=== PATIENT | female | born 1935 | race Caucasian/White ===

== ENCOUNTER 2025-10-08 11:15 | Outpatient (AMB) | payer MEDICARE, BC, SELFPAY ==
--- OUTSIDE RECORDS SUMMARY | 2025-10-08 11:18 | XMS_ITS | Clinical Summary ---
Author Organization [facility] Healthcare Syste m Address [address] [place] [address] Care Team Providers Care Sugar Refiner Name Role Phone Wilbur Teague Primary Care Provider [phone] Allergies Active Allergy Reactions Criticality Noted Date Comments Meperidine 02/27/2022 Morphine 02/27/2022 Medications aspirin 81 mg EC tablet Take 1 tablet (81 mg) by mouth at bedtime. 5 Active flaxseed oiL oil Daily (once per day) (timed). 0 Active calcium carbonate 600 mg calcium (1,500 mg) tablet Take 2 tablets (1,200 mg) by mouth in the evening. 8 Active cyanocobalamin (Vitamin B-12) 1,000 mcg tablet Take 1 tablet (1,000 mcg) by mouth 1 (one) time each day. 1 Active triamterene-hyd rochlorothiazid (Dyazide) 37.5-25 mg capsule Take 1 capsule by mouth 1 (one) time each day. Saturday-Saturday 7 Active vit A/vit C/vit E/zinc/copper (PRESERVISION AREDS ORAL) in the morning and at bedtime. 1 Active calcium-vits N0-R-V7-mineral s 166.75 mg- 166.75 unit capsule calcium 600 mg by po daily Active glucosamine-D3- hyaluronic acid 1,000 mg- 25 mcg-1.65 mg tablet Glucosamine 1 tab by po twice a day Active metoprolol tartrate (Lopressor) 50 mg tablet Take 1 tablet (50 mg) by mouth in the morning and at bedtime. 180 tablet 3 2 Active omeprazole (PriLOSEC) [address] capsule Take 1 capsule (20 mg) by mouth before breakfast. Do not crush or chew. 90 capsule 3 2 Active atorvastatin (Lipitor) 80 mg tablet Take 1 tablet (80 mg) by mouth in the morning. 90 tablet 3 2 Active levothyroxine (Synthroid, Levoxyl) 88 mcg tablet Take 1 tablet (88 mcg) by mouth before breakfast. 90 tablet 3 2 Active amLODIPine (Norvasc) 5 mg tablet Take 1 tablet (5 mg) by mouth in the morning. 90 tablet 3 2 Active Additional Information Patient taking differently: 10 mgoral Daily, Reported on 05/04/2025 losartan (Cozaar) 100 mg tablet Take 1 tablet (100 mg) by mouth in the morning. 90 tablet 3 2 Active docosahexaenoic acid/epa (FISH OIL ORAL) Take by mouth. Activ e nitroglycerin (Nitrostat) 0.[address] 1 tablet (0.4 mg) under the tongue every 5 (five) minutes if needed for chest pain. 90 tablet 3 3 Active clonazePAM (KlonoPIN) 0.5 mg tablet Take 1 tablet (0.5 mg) by mouth at bedtime. 4 Active sertraline (Zoloft) 50 mg tablet Take 1 tablet (50 mg) by mouth every other day. Active Active Problems Problem Noted Date Diagnosed Date Anemia of chronic renal failure 06/05/2022 CAD in [place] artery 02/27/2022 Arteriosclerosis of coronary artery 02/27/2022 Dyslipidemia 02/27/2022 Gastroesophageal reflux disease 02/27/2022 Hypertension 02/27/2022 Hypothyroidism 02/27/2022 Immunizations Immunization Administration Dates Next Due Pneumococcal Conjugate PCV 13 08/24/2015 Family History Medical History Relation Name Comments Heart attack Father Heart disease Father Lung cancer Father Alzheimer's disease Mother Relation Name Status Comments Father Mother Social History Tobacco Use Types Packs/Day Years Used Date Smoking Tobacco: Never Smokeless Tobacco: Never Tobacco Cessation:Counseling Given: Not Answered Comments Unknown Sex and Gender Information Value Date Recorded Sex Assigned at Not on file Legal Sex Female 9:57 PM EDT Gender Identity Not on file Sexual Orientation Not on file Last Filed Vital Signs Vital Sign Reading Time Taken Comments Blood Pressure 126/75 05/04/2025 12:53 PM EDT Pulse 58 05/04/2025 12:53 PM EDT Temperature 36.7 C (98.1 F) 07/03/2022 2:12 PM EDT Respiratory Rate 18 05/04/2025 12:53 PM EDT Oxygen Saturation 97% 05/04/2025 12:53 PM EDT Inhaled Oxygen Concentration - - Weight 47.6 kg (105 lb) 05/04/2025 12:53 PM EDT Height 157.5 cm (5' 2.01 ) 05/04/2025 12:53 PM E DT Body Mass Index 19.2 05/04/2025 12:53 PM EDT Plan of Treatment Upcoming Encounters Date Type Department Care Team (Late st Contact Info) Description 11/17/2025 1:00 PM EST Office Visit [facility] Cardiology - [place] [address] [place] [address], [address] [place] [address] Diego Gurrola MD [address] [place] [address] Health Maintenance Due Date Last Done Comments Bone Density Scan 1935 TSH Level 1935 Hepatitis B Vaccines (2 of 3 - 19+ 3-dose series) 11/11/1969 10/14/1969 COVID-19 Vaccine ( season) 2025 08/06/2022, 03/06/2022, 08/09/2021, Additional history exists Influenza Vaccine (#1) 2025 , 07/08/2023, 07/31/2022, Additional history exists Medicare Annual Wellness (AWV) 11/12/2025 10/13/2024, 10/10/2023, 10/04/2022, Additional history exists Pneumococcal Vaccine: 50+ Years Completed 07/02/2019, 10/14/2018, 08/24/2015 Zoster Vaccines Completed 07/27/2020, 11/15, 12/10/2018 HIB Vaccines Aged Out No longer eligi ble based on patient's age to complete this topic HPV Vaccines Aged Out No longer eligi ble based on patient's age to complete this topic Hepatitis A Vaccines Aged Out No long er eligible based on patient's age to complete this topic IPV Vaccines Aged Out No longer eligi ble based on patient's age to complete this topic Meningococcal B Vaccine Aged Out No l onger eligible based on patient's age to complete this topic Meningococcal Vaccine Aged Out No kely johny eligible based on patient's age to complete this topic Rotavirus Vaccines Aged Out No longer eligible based on patient's age to complete this topic Insurance MEDICARE [facility] Care Teams Sugar Refiner Relationship Specialty Start Date End Date Wilbur Teague [address] [facility] [place] [address] [facility] - General 03/28/22
--- OUTSIDE RECORDS SUMMARY | 2025-10-08 11:18 | XMS_ITS | Encounter Summary ---
Author Organization [facility] Healthcare Syste m Address [address] [place] [address] Care Team Providers Care Buffing And Polishing Wheel Repairer Name Role Phone ChidiWilbur vasquez Primary Care Provider [phone] Encounter Details Date Type Department Care Team (Late st Contact Info) Description 07/03/2022 Abstract [facility] ([facility] [address] [place] [address] Bhavesh Porras PA-C [address] [place] [address] Social History Tobacco Use Types Packs/Day Years Used Date Smoking Tobacco: Never Assessed Smokeless Tobacco: Never Comments Unknown Sex and Gender Information Value Date Recorded Sex Assigned at Not on file Legal Sex Female 9:57 PM EDT Gender Identity Not on file Sexual Orientation Not on file COVID-19 Exposure Response Date Recorded In the last month, have you been in contact with someone who was confirmed or suspected to have Coronavirus / COVID-19? No / Unsure 07/03/2022 2:05 PM EDT documented as of this encounter Plan of Treatment Upcoming Encounters Date Type Department Care Team (Late st Contact Info) Description 11/17/2025 1:00 PM EST Office Visit [facility] Cardiology - [place] [address], [address] [place] [address] Diego Gurrola MD [address] [place] [address] documented as of this encounter Visit Diagnoses Not on filedocumented in this encounter Care Teams Buffing And Polishing Wheel Repairer Relationship Specialty Start Date End Date Wilbur Teague [address] [facility] [address] KENDRICK [address] [place] [address], [place] [address] PCP - General 03/28/22 documented as of this encounter
--- OUTSIDE RECORDS SUMMARY | 2025-10-08 11:18 | XMS_ITS | Encounter Summary ---
Author Organization [facility] Healthcare Syste m Address [address] [place] [address] Care Team Providers Care Bond Trader Name Role Phone ChidiWilbur vasquez Primary Care Provider [phone] Encounter Details Date Type Department Care Team (Late st Contact Info) Description 07/31/2022 Abstract [facility] Out[facility] ([facility]) [address] [place] [address] Bhavesh Porras PA-C [address] [place] [address] Social History Tobacco Use Types Packs/Day Years [...] Description 11/17/2025 1:00 PM EST Office Visit [facility] Cardiology - [place] [address], [address] [place] [address] Diego Gurrola MD [address] [place] [address] documented as of this encounter Visit Diagnoses Not on filedocumented in this encounter Care Teams Bond Trader Relationship Specialty Start Date End Date Wilbur Teague [address] [facility] [address] KENDRICK [address] [place] [address], [place] [address] PCP - General 03/28/22 documented as of this encounter
--- OUTSIDE RECORDS SUMMARY | 2025-10-08 11:18 | XMS_ITS | Encounter Summary ---
Author Organization [facility] Healthcare Syste m Address [address] [place] [address] Care Team Providers Care Vp Of Global Marketing Name Role Phone ChidiWilbur vasquez Primary Care Provider [phone] Encounter Details Date Type Department Care Team (Late st Contact Info) Description 07/03/2022 Abstract [facility] ([facility]) [address] [place] [address] Bhavesh Porras PA-C [address] [place] [address] Social History Tobacco Use Types Packs/Day Years [...] Description 11/17/2025 1:00 PM EST Office Visit [facility] Cardiology - [place] [address], [address] [place] [address] Diego Gurrola MD [address] [place] [address] documented as of this encounter Visit Diagnoses Not on filedocumented in this encounter Care Teams Vp Of Global Marketing Relationship Specialty Start Date End Date Wilbur Teague [address] [facility] [address] KENDRICK [address] [place] [address], [place] [address] PCP - General 03/28/22 documented as of this encounter
--- OUTSIDE RECORDS SUMMARY | 2025-10-08 11:19 | XMS_ITS | Encounter Summary ---
Author Organization [facility] Healthcare Syste m Address [address] [place] [address] Care Team Providers Care Manager Council Name Role Phone ChidiWilbur vasquez Primary Care Provider [phone] Encounter Details Date Type Department Care Team (Late st Contact Info) Description 06/05/2022 Abstract [facility] ([facility] [address] [place] [address] Bhavesh Porras PA-C [address] [place] [address] Social History Tobacco Use Types Packs/Day Years [...] have Coronavirus / COVID-19? No / Unsure 06/05/2022 1:45 PM EDT documented as of this encounter Plan of Treatment Upcoming Encounters Date Type Department Care Team (Late st Contact Info) Description 11/17/2025 1:00 PM EST Office Visit [facility] Cardiology - [place] [address], [address] [place] [address] Diego Gurrola MD [address] [place] [address] documented as of this encounter Visit Diagnoses Not on filedocumented in this encounter Care Teams Manager Council Relationship Specialty Start Date End Date Wilbur Teague [address] [facility] [address] KEN[address]ICK [address] [place] [address], [place] [address] PCP - General 03/28/22 documented as of this encounter
--- OUTSIDE RECORDS SUMMARY | 2025-10-08 11:19 | XMS_ITS | Encounter Summary ---
Author Organization [facility] Healthcare Syste m Address [address] [place] [address] Care Team Providers Care Order Management Specialist Name Role Phone ChidiWilbur vasquez Primary Care Provider [phone] Encounter Details Date Type Department Care Team (Late st Contact Info) Description 06/04/2022 Abstract [facility] ([facility]) [address] [place] [address] Bhavesh Porras PA-C [address] [place] [address] Social History Tobacco Use Types Packs/Day Years [...] Description 11/17/2025 1:00 PM EST Office Visit [facility] Cardiology - [place] [address], [address] [place] [address] Diego Gurrola MD [address] [place] [address] documented as of this encounter Visit Diagnoses Not on filedocumented in this encounter Care Teams Order Management Specialist Relationship Specialty Start Date End Date Wilbur Teague [address] [facility] [address] KENDRICK [address] [place] [address], [place] [address] PCP - General 03/28/22 documented as of this encounter
--- OUTSIDE RECORDS SUMMARY | 2025-10-08 11:19 | XMS_ITS | Encounter Summary ---
Author Organization [facility] Healthcare Syste m Address [address] [place] [address] Care Team Providers Care Associate Biological Sales Name Role Phone ChidiWilbur vasquez Primary Care Provider [phone] Encounter Details Date Type Department Care Team (Late st Contact Info) Description 06/04/2022 Abstract [facility]) [address] [place] [address] Bhavesh Porras PA-C [address] [place] [address] Social History Tobacco Use Types Packs/Day Years [...] Description 11/17/2025 1:00 PM EST Office Visit [facility] Cardiology - [place] [address], [address] [place] [address] Diego Gurrola MD [address] [place] [address] documented as of this encounter Visit Diagnoses Not on filedocumented in this encounter Care Teams Associate Biological Sales Relationship Specialty Start Date End Date Wilbur Teague [address] [facility] [address] K[address] [place] [address], [place] [address] PCP - General 03/28/22 documented as of this encounter
--- OUTSIDE RECORDS SUMMARY | 2025-10-08 11:19 | XMS_ITS | Encounter Summary ---
Author Organization [facility] Healthcare Syste m Address [address] [place] [address] Care Team Providers Care Heel Shaver Name Role Phone ChidiWilbur vasquez Primary Care Provider [phone] Encounter Details Date Type Department Care Team (Late st Contact Info) Description 06/04/2022 Abstract [facility] Out[facility] ([facility]) [address] [place] [address] Bhavesh Porras PA-C [address] [place] [address] Social History Tobacco Use Types Packs/Day Years [...] Description 11/17/2025 1:00 PM EST Office Visit [facility] Cardiology - [place] [address], [address] [place] [address] Diego Gurrola MD [address] [place] [address] documented as of this encounter Visit Diagnoses Not on filedocumented in this encounter Care Teams Heel Shaver Relationship Specialty Start Date End Date Wilbur Teague [address] [facility] [address] K[place] [place] [address], [place] [address] PCP - General 03/28/22 documented as of this encounter
--- OUTSIDE RECORDS SUMMARY | 2025-10-08 11:19 | XMS_ITS | Clinical Summary ---
Author Organization [facility] Address [address] [place] [address] Care Team Providers Care Nurses' Association Executive Director Name Role Phone Unavailable Primary Care Provider Unavailabl e Social History Tobacco Use Types Packs/Day Years Used Date Smoking Tobacco: Never Assessed Comments Unknown Sex and Gender Information Value Date Recorded Sex Assigned at Not on file Legal Sex Female 6:59 AM EST Gender Identity Not on file Sexual Orientation Not on file Plan of Treatment Not on file
--- OUTSIDE RECORDS SUMMARY | 2025-10-08 11:19 | XMS_ITS | Encounter Summary ---
Author Organization [facility] Healthcare Syste m Address [address] [place] [address] Care Team Providers Care Non Licensed Nuclear Equipment Operator Name Role Phone ChidiWilbur vasquez Primary Care Provider [phone] Encounter Details Date Type Department Care Team (Late st Contact Info) Description 06/04/2022 Abstract [facility] Outpatient [facility] Center ([facility]) [address] [place] [address] Bhavesh Porras PA-C [address] [place] [address] Social History Tobacco Use Types Packs/Day Years [...] Description 11/17/2025 1:00 PM EST Office Visit [facility] Cardiology - [place] [address], [address] [place] [address] Diego Gurrola MD [address] [place] [address] documented as of this encounter Visit Diagnoses Not on filedocumented in this encounter Care Teams Non Licensed Nuclear Equipment Operator Relationship Specialty Start Date End Date Wilbur Teague [address] [facility] [address] K[address] [place] [address], [place] [address] PCP - General 03/28/22 documented as of this encounter
--- OUTSIDE RECORDS SUMMARY | 2025-10-08 11:19 | XMS_ITS | Continuity of Care Document ---
Author Organization [place] - [facility] [place], [address] Address [address] [place] [address] Care Team Providers Care [employer] Supervisor Name Role Phone STEVE MARI OTHER BRI TEAGUE Primary Care Provider Assessment Encounter Date Assessment Date Assessment LastModified by Organization Details LastModified Time 07/12/2025 07/12/2025 [place] son and daughter. She requests medical records to be sent to her new provider but has not picked a new provider yet. Advised her to contact clinic when she has and we can fax records. I will continue to provide medication refills for her for up to 12 months from now. She is appreciative of this and for the care provided while in [place] to her and her now- . [place] Not available 07/13/2025 06:36:58 Plan of Treatment Reminders Order Date Submit Date Provider Last Modified By Organization Details Last Modified Time Details Appointments *Medicare Annual Wellness 2025 12:00P Kady Teague MD Not available Not available Not available Lab None recorded. Referral None recorded. Procedures None recorded. Surgeries None recorded. Imaging None recorded. Medication Orders None recorded. Patient TargetsNo targets recorded. Patient Instructions Encounter Date Encounter Id Patient Instructions Last Modified By Organization Details Last Modified Time 07/12/2025 [id number] high blood pressure: care instructions [place] Not available 07/12/2025 13:27:37 learning about high blood pressure [place] Not available 07/12/2025 13:27:37 Reason for Referral None Reported. Results Created Date Observation Date Name Description Value Unit Range Abnormal Flag Note LastModifiedBy Organization Detail LastModifiedTime 07/22/20 25 05/14/2025 ben curran am No observ ation record ed. BARCODE Not Available 2024 17:10:47 Result Notes None recorded. 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 Not Available [facility] 0 14:15:17 Coronary arterios clerosis 26086345 Active Not Available [facility] 0 14:15:17 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 Not Available [facility] 0 14:15:17 Benign essentia l hyperten jake 3944106 Active Not Available [facility] 0 14:15:17 Anemia of chronic disease 714192664 Active Not Available [facility] 0 14:15:17 Impacted cerumen 69379837 Completed 01/20/2020 Walt Freitas MD [address], [address], [address] , [address] 0 10:49:28 Generali zed headache 341754960 Completed 01/20/2020 Removal Reason: has not been a problem recently Walt Freitas MD [address], [address], [address] , [address] 0 16:50:16 Benign paroxysm al position al vertigo 478503589 Completed 01/20/2020 Removal Reason: resolved Walt Freitas MD [address], [address], [address] , [address] 0 16:49:55 Intracra nial meningio ma 897710219 Active Not Available [facility] 0 14:15:17 Anemia 047177365 Completed 201701/20/2020 Walt Freitas MD [address], [address]ITE [facility], [place], [address] , [address] 0 10:49:10 Chronic kidney disease stage 3B 776099730 Active 2019 Not Available [facility] 0 14:15:17 Chronic insomnia 881390276 Active 2020 Walt Freitas MD [address], [address], [address] , [address] 1 20:01:38 Arthriti s of hand 403065768 Active 2020 Walt Freitas MD [address], [place] [address], [place], [address] , [address] 1 11:27:21 Near syncope 571071704 Active 2024 BRI TEAGUE MD [address] [place], [address] , [address] 5 06:20:51 Problem Notes None recorded. Procedures Surgical History Date Name Laterality Status Provider Name and Address Organization Details Recorded Time 11/02/19 Date of Last Mammogram completed Kiki Duncan CMA [address] 05/10/2025 10:55:37 10/13/20 24 Medicare Wellness CPT Code, Subsequent completed Rock Renteria LPN [address] 10/13/2024 13:05:49 10/10/20 23 Medicare Wellness CPT Code, Subsequent completed Smitha Mcdermott Director Risk [address] 10/09/2023 07:52:12 10/04/20 Medicare Wellness CPT Code, Subsequent completed Tim Maldonado [address] 10/04/2022 13:01:18 01/17/20 Most Recent Bone Density completed Kiki Duncan CRITICAL CARE NURSE SPECIALIST [address] 01/02/2023 12:15:57 09/24/20 21 Medicare Wellness CPT Code, Subsequent completed Bayron Ra[address] 07/07/2021 10:32:52 07/12/20 20 Medicare Wellness CPT Code, Subsequent completed Bayron Ra[address] 07/12/2020 13:51:38 01/20/20 20 Telehealth Communication completed Radha Artis, [address] 01/20/2020 10:00:33 07/08/20 19 Medicare Wellness CPT Code, Initial completed Rula Cevallos RN [address] 07/08/2019 14:38:30 10/14/19 14 Date of Last Colonoscopy completed Kiki Duncan , [address] 01/02/2023 12:15:43 10/14/18 74 Hysterectomy completed Bayronmackenzie Knapp[address] 07/12/2020 14:00:15 Appendectomy completed MARCELLO Black [address] 12/14/2024 11:10:27 Angioplasty completed Cassidy Espinoza[address] 09/23/2014 12:37:41 Imaging Results None recorded. Procedure Notes None recorded. Medical Equipment None Reported. Allergies Allergen ID Allergen Name Allergen Category Reaction Reaction Severity Criticality Documentation Date Start Date Code Code System Note Provider Name and Address Organization Details Recorded Time 289242 morphine medicatio n Not available Not available Not available 09/23/2014 7052 RxNorm Beronica Espinoza[address] 4 12:34:41 097993 meperidin e medicatio n Not available Not available Not available 09/23/2014 6754 RxNorm Beronica Espinoza[address] 4 12:34:41 627036 Demerol medicatio n Not available Not available Not available 02/26/2018 00345 1 RxNorm TESS [employer] 8 09:09:27 Medications Name Sig Start Date Stop Date Status Note LastModified by Organization Details LastModified Time atorvastati n 80 mg tablet TAKE 1 TABLET BY MOUTH EVERY DAY active Not Available Not Available No t Available ketoconazol e 2 % shampoo WASH TOPICALLY TO THE SCALP 3 TO 4 TIMES WEEKLY. LEAVE ON FOR 5 MINUTES THEN RINSE active Not Available Not Available No t Available trazodone 50 mg tablet 1 tablet PO at bedtime. May increase to 2 tablets at bedtime if needed. 04/26 completed Not Available Not Available Not Available azithromyci n 250 mg tablet TAKE 2 TABLETS (500 MG) BY ORAL ROUTE ONCE DAILY FOR 1 DAY THEN 1 TABLET (250 MG) BY ORAL ROUTE ONCE DAILY FOR 4 DAYS 05/10 completed Not Available Not Available Not Available benzonatate 200 mg capsule TAKE 1 CAPSULE BY MOUTH THREE TIMES DAILY FOR 7 DAYS NEEDED 07/14 completed Not Available Not Available Not Available ondansetron HCl 4 mg tablet TAKE 1 TABLET BY MOUTH EVERY 12 HOURS 01/02 completed Not Available Not Available Not Available clonazepam 0.5 mg tablet TAKE 1 TO 2 TABLETS BY MOUTH EVERY DAY NEEDED FOR INSOMNIA active Not Available Not Available No t Available amlodipine 2.5 mg tablet TAKE 1 TABLET BY MOUTH EVERY DAY FOR 90 DAYS active Not Available Not Available No t Available amlodipine 5 mg tablet TAKE 2 TABLETS BY MOUTH EVERY DAY active Not Available Not Available No t Available triamterene 37.5 mg-hydrochl orothiazide 25 mg capsule TK 1 C PO QD 01/19 completed Not Available Not Available Not Available levothyroxi ne 88 mcg tablet TAKE 1 TABLET BY MOUTH EVERY DAY active Not Available Not Available No t Available lorazepam 0.5 mg tablet TAKE 1 TABLET BY MOUTH PRIOR TO MRI THEN TAKE 1 TABLET BY MOUTH RIGHT BEFORE MRI 01/03 completed Not Available Not Available Not Available temazepam 15 mg capsule TAKE ONE CAPSULE BY MOUTH AT BEDTIME NEEDED INSOMNIA 10/04 completed Not Available Not Available Not Available meclizine 25 mg tablet TAKE 1 TABLET BY MOUTH EVERY 8 HOURS NEEDED 07/12 completed Not Available Not Available Not Available benzonatate 100 mg capsule 11/12 completed Not Available Not Available Not Available hydrocodone 7.5 mg-acetamin ophen 325 mg tablet TAKE 1 TO 2 TABLETS BY MOUTH EVERY 4 TO 6 HOURS NEEDED active Not Available Not Available No t Available cephalexin 500 mg capsule 01/19 completed Not Available Not Available Not Available esomeprazol e magnesium 40 mg capsule,del ayed release Take 1 capsule(s ) every day by oral route. 07/12 completed Not Available Not Available Not Available metoprolol tartrate 50 mg tablet TAKE 1 TABLET BY MOUTH TWICE DAILY active Not Available Not Available No t Available nitroglycer in 0.4 mg sublingual tablet DISSOLVE 1 TABLET UNDER THE TONGUE EVERY 5 MINUTES NEEDED FOR CHEST PAIN active Not Available Not Available No t Available triamterene 37.5 mg-hydrochl orothiazide 25 mg tablet TAKE 1 TABLET BY MOUTH EVERY DAY active Not Available Not Available No t Available omeprazole 20 mg capsule,del ayed release TAKE 1 CAPSULE BY MOUTH EVERY DAY active Not Available Not Available No t Available aspirin 81 mg chewable tablet Chew 1 tablet every day by oral route. active Not Available Not Available No t Available hydrocortis one 2.5 % topical cream APPLY TO THE AFFECTED AREA ON RIGHT LOWER EYELID TWICE DAILY FOR 5 DAYS THEN STOP. MUST TAKE AT LEAST 1 WEEK BREAK THEN USE NEEDED FOR FLARES 10/04 completed Not Available Not Available Not Available zolpidem 5 mg tablet TAKE 1 TABLET BY MOUTH EVERY DAY AT BEDTIME NEEDED active Not Available Not Available No t Available fluocinolon e 0.01 % topical solution APPLY TO AFFECTED AREA ON SCALP EVERY DAY FOR 7 DAYS THEN STOP. MUST TAKE AT LEAST 1 WEEK BREAK. USE NEEDED FOR FLARE UPS. DO NOT RINSE active Not Available Not Available No t Available irbesartan 150 mg tablet TK 1 T PO QD 07/12 completed Not Available Not Available Not Available methylpredn isolone 4 mg tablets in a dose pack 11/12 completed Not Available Not Available Not Available losartan 100 mg tablet TAKE 1 TABLET BY MOUTH EVERY DAY FOR 90 DAY 2024 active Not Available Not Available Not Avai lable sertraline 50 mg tablet Take 1 tablet every day by oral route. 12/14 completed Not Available Not Available Not Available neomycin 3.5 mg/g-polymy chantelle B 10,000 unit/g-dexa meth 0.1 % eye oint 07/12 completed Not Available Not Available Not Available Pneumovax-2 3 25 mcg/0.5 mL injection syringe ADM 0.5ML IM UTD 01/19 completed Not Available Not Available Not Available cyclobenzap rine 5 mg tablet TK 1 TO 2 TS PO QHS PRF INSOMNIA 01/19 completed Not Available Not Available Not Available Vigamox 0.5 % eye drops active Not Available Not Available Not Available Boostrix Tdap 2.5 Lf unit-8 mcg-5 Lf/0.5 mL intramuscul ar syringe ADM 0.5ML IM UTD 01/19 completed Not Available Not Available Not Available calcium 600 mg by po daily active Not Available Not Available No t Available Glucosamine 1 tab by po twice a day active Not Available Not Available No t Available ProAir HFA 90 mcg/actuati on aerosol inhaler 11/12 completed Not Available Not Available Not Available fluocinolon e acetonide oil 0.01 % ear drops INSTILL 5 DROPS INTO RIGHT EAR BY OTIC ROUTE 2 TIMES PER DAY active Not Available Not Available No t Available peg 3350-electr olytes 236 gram-22.74 gram-6.74 gram-5.86 gram solution active Not Available Not Available Not Available oseltamivir 30 mg capsule Take 1 capsule every day by oral route for 5 days. 05/10 completed Not Available Not Available Not Available Durezol 0.05 % eye drops active Not Available Not Available Not Available B12 1 tab daily 04/26 completed Not Available Not Available Not Available ICaps AREDS 22 tablets a day active Not Available Not Available No t Available Prolensa 0.07 % eye drops active Not Available Not Available Not Available Fluzone High-Dose (PF) 180 mcg/0.5 mL intramuscul ar syringe ADM 0.5ML UTD active Not Available Not Available No t Available Fluzone High-Dose (PF) 180 mcg/0.5 mL intramuscul ar syringe ADM 0.5ML IM UTD 11/12 completed Not Available Not Available Not Available Shingrix (PF) 50 mcg/0.5 mL intramuscul ar suspension, kit ADM 0.5ML IM UTD 10/04 completed Not Available Not Available Not Available Fluad 65yr up(PF)45 mcg(15 mcgx3)/0.5 mL intramuscul ar syringe ADM 0.5ML IM UTD 11/12 completed Not Available Not Available Not Available Fluad 65yr up(PF)45 mcg(15 mcgx3)/0.5 mL intramuscul ar syringe ADM 0.5ML IM UTD 01/19 completed Not Available Not Available Not Available Fluzone High-Dose Quad (PF) 240 mcg/0.7 mL IM syringe ADM 0.7ML IM UTD 04/26 completed Not Available Not Available Not Available Vitals Date Recorded Body height Body mass index (BMI) Body weight Heart rate Respiratory rate Oxygen saturation Pain severity - 0-10 verbal numeric rating [Score] - Reported Systolic And Diastolic Provider Name and Address Organization Details Last Updated DateTime 5 157.48 cm 19.6 kg/m2 74451.3 8 g 62 /min 16 /min 97 % 0 124/63 mm[Hg] Kiki Duncan [facility]14 [place] 13:02:36 Social History Question Answer Notes LastModified by Organizat ion Details LastModified Time Tobacco Smoking Status Former Smoker Cassidy Espinoza CMA [facility], [facility] [place] 09/23/2014 12:34:12 Do You Have An Advance Directive? Yes [email or web address] Information not available 10/04/2022 Are You Blind Or Do You Have Difficulty Seeing? No Information not available 10/04/2022 What Is Your Level Of Caffeine Consumption? Occasional 1 Cup Of Coffee A Day Decaff [email or web address] Information not available 10/04/2022 Are You Deaf Or Do You Have Serious Difficulty Hearing? No [email or web address] Information not available 10/04/2022 What Type Of Diet Are You Following? REGULAR [email or web address] Information not available 10/04/2022 What Is The Highest Grade Or Level Of School You Have Completed Or The Highest Degree You Have Received? CT72265-8 [email or web address] Information not available 10/04/2022 Which Of Your Hands Is Dominant? Right [email or web address] Information not available 10/04/2022 Do You Have A Medical Power Of Project Scheduler? Yes [email or web address] Information not available 10/04/2022 What Was The Date Of Your Most Recent Tobacco Screening? 05/10/2025 [email or web address] Information not available 05/10/2025 How Many Children Do You Have? 3 [email or web address] Information not available 10/04/2022 What Is Your Current Pack Years? 10packyears [email or web address] Information not available 10/04/2022 What Is Your Relationship Status? [email or web address] Information not available 10/04/2022 Do You Use Your Seat Belt Or Car Seat Routinely? Yes [email or web address] Information not available 10/04/2022 Do You Have Smoke And Carbon Monoxide Detectors In Your Home? Yes [email or web address] Information not available 10/04/2022 Are You Passively Exposed To Smoke? No [email or web address] Information not available 10/04/2022 How Much Tobacco Do You Smoke? No [email or web address] Information not available 10/04/2022 Do You Use Sunscreen Routinely? Yes [email or web address] Information not available 10/04/2022 Has Tobacco Cessation Counseling Been Provided? No [email or web address] Information not available 10/04/2022 How Many Years Have You Smoked Tobacco? 8 [email or web address] Information not available 07/12/2020 Have You Recently Traveled Abroad? No [email or web address] Information not available 10/04/2022 Do You Have Difficulty Walking Or Climbing Stairs? No [email or web address] Information not available 10/04/2022 Sex: Unknown Functional Status Question Answer Note LastModified by Organizat ion Details LastModified Time Do you use any illicit or recreational drugs? No [email or web address] Information not available 10/04/2022 Do you or have you ever used any other forms of tobacco or nicotine? No [email or web address] Information not available 10/04/2022 What is your level of alcohol consumption? 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 No [email or web address] Information not available 10/04/2022 Are you able to care for yourself independently? Yes [email or web address] Information not available 10/04/2022 Do you have difficulty dressing, bathing, grooming, or toileting? No Information not available 10/04/2022 Mental Status Question Answer Note LastModified by Organization D etails LastModified Time Do you have difficulty concentrating, remembering or making decisions? No [email or web address] Information no t available 10/04/2022 Family History Relationship Description Onset Age of this Age Resolved Age Notes LastModified by Organization Details LastModified Time Mother Alzheimer's disease 78 [email or web address] Not available 07/12 13:58:55 Father Malignant neoplasm of lung 57 [email or web address] Not available 07/12 13:59:10 Father Hyperlipidem ia [email or web address] Not available 2015 09:18:07 Father Hypertensive disorder [email or web address] Not available 2015 09:18:07 Medical History Condition Response Coronary Artery Disease Y Mammograms Y Arthritis Y Hyperlipidemia Y Hypertension Y Gynecological History Statement/Question Response Date of Last Pap Smear 10/14/2015 09/04/2013 Date of Last Colonoscopy 10/14/2013 Date of Last Mammogram 11/02/2024 Most Recent Bone Density 01/16/2022 09/04/2013 Obstetrics History GPAL:G 0 P 0 0 0 0 Immunizations Vaccine Type Date Status Note Provider Nam e and Address Organization Details Recorded Time Influenza, split virus, quadrivalent, preservative 9 completed Vialine Orcel , CRITICAL CARE NURSE SPECIALIST null, [place] - [facility] [place] 10/10/2023 12:09:38 Pneumococcal conjugate PCV 13 9 completed Vialine Orcel , CRITICAL CARE NURSE SPECIALIST [place], [place] [facility] [place] 10/10/2023 12:09:38 Hep B, unspecified formulation 0 completed Vialine Orcel , CRITICAL CARE NURSE SPECIALIST [place], [place] [facility] [place] 10/10/2023 12:09:38 Influenza, split virus, quadrivalent, preservative 0 completed Vialine Orcel , CRITICAL CARE NURSE SPECIALIST [place], [place] [facility] [place] 10/10/2023 12:09:38 COVID-19, mRNA, LNP-S, PF, 100 mcg/0.5mL dose or 50 mcg/0.25mL dose 2 completed Vialine Orcel , CRITICAL CARE NURSE SPECIALIST [place], [place] [facility] [place] 10/04/2022 14:09:16 COVID-19, mRNA, LNP-S, PF, 100 mcg/0.5mL dose or 50 mcg/0.25mL dose 1 completed Vialine Orcel , CRITICAL CARE NURSE SPECIALIST [place], [place] [facility] [place] 01/02/2023 12:14:18 zoster recombinant 0 completed Vialine Orcel , CRITICAL CARE NURSE SPECIALIST [place], [place] [facility] [place] 10/04/2022 14:22:02 zoster recombinant 9 completed Vialine Orcel , CRITICAL CARE NURSE SPECIALIST [place], [place] [facility] [place] 10/10/2023 12:09:38 Tdap 9 completed Vialine Orcel , CRITICAL CARE NURSE SPECIALIST null, [place] - [facility] [place] 10/04/2022 14:24:10 pneumococcal polysaccharide PPV23 9 completed Vialine Orcel , CRITICAL CARE NURSE SPECIALIST null, [place] [facility] [place] 10/04/2022 14:25:57 Influenza, adjuvanted, trivalent, PF 9 completed Vialine Orcel , CRITICAL CARE NURSE SPECIALIST null, [facility] [place] 10/04/2022 14:27:28 Influenza, adjuvanted, trivalent, PF 8 completed Vialine Orcel , CRITICAL CARE NURSE SPECIALIST null, [address] 10/04/2022 14:28:40 Pneumococcal conjugate PCV 13 5 completed Vialine Orcel , CRITICAL CARE NURSE SPECIALIST null, [place] [facility] [place] 10/04/2022 14:29:16 Novel [id number], preservative-free 0 completed Vialine Orcel , CRITICAL CARE NURSE SPECIALIST null, [address] 01/02/2023 12:14:19 zoster recombinant 0 completed Vialine Orcel , CRITICAL CARE NURSE SPECIALIST null, [address] 01/02/2023 12:14:18 Influenza, high-dose, quadrivalent, PF 1 completed Vialine Orcel , CRITICAL CARE NURSE SPECIALIST null, [address] 01/02/2023 12:14:18 Influenza, adjuvanted, quadrivalent, PF 2 completed Vialine Orcel , CRITICAL CARE NURSE SPECIALIST null, [facility] [place] 01/02/2023 12:14:18 COVID-19, mRNA, LNP-S, PF, 100 mcg/0.5mL dose or 50 mcg/0.25mL dose 1 completed Vialine Orcel , CRITICAL CARE NURSE SPECIALIST null, [place] [facility] [place] 01/02/2023 12:14:18 COVID-19, mRNA, LNP-S, PF, 100 mcg/0.5mL dose or 50 mcg/0.25mL dose 1 completed Vialine Orcel , CRITICAL CARE NURSE SPECIALIST [place], [place] [facility] [place] 01/02/2023 12:14:18 COVID-19, mRNA, LNP-S, bivalent, PF, 50 mcg/0.5 mL or 25mcg/0.25 mL dose 2 completed Vialine Orcel , CRITICAL CARE NURSE SPECIALIST null, [address] 01/02/2023 12:14:18 Influenza, high-dose, trivalent, PF 4 completed Vialine Orcel , CRITICAL CARE NURSE SPECIALIST null, [address] 10/10/2023 12:09:38 Influenza, high-dose, quadrivalent, PF 3 completed BRI TEAGUE MD [address] [place], [address], [address] 07/09/2023 06:26:44 Influenza, high-dose, trivalent, PF 4 completed Vialine Orcel , CRITICAL CARE NURSE SPECIALIST null, [address] 07/15/2024 10:53:34 Influenza, high-dose, trivalent, PF 5 completed Vialine Orcel , CRITICAL CARE NURSE SPECIALIST null, [address] 07/12/2025 13:38:58 Influenza, split virus, quadrivalent, preservative 7 completed Vialine Orcel , CRITICAL CARE NURSE SPECIALIST null, [address] 10/10/2023 12:09:38 Influenza, split virus, quadrivalent, preservative 8 completed Vialine Orcel , CRITICAL CARE NURSE SPECIALIST null, [address] 10/10/2023 12:09:38 Past Encounters Encounter ID Performer Location Encounter Start Date Encounter Closed Date Diagnosis/Indication Diagnosis SNOMED-CT Code Diagnosis ICD10 Code Diagnosis IMO Codes Diagnosis Note [id number] BRI TEAGUE MD [address] [place] [address] [place] [address] 07/12/2025 12:36:26 07/12/2025 13:33:57 Benign essential hypertension 7968447 I10 controlled . Improved. increased amlodipine to 10 mg, which we will continue. Considered increasing medication but decided not to based on previous good control, And home readings that are at goal - 100s-130s/ 60s 7 0sRecommen ded to resume AHBPM and f/u in 2 months, And follow-up with home readings for reassessme nt.Recomme nd that she bring her blood pressure cuff with her to the next office visit so we can check accuracy on that. Chronic anemia 254454562 D64.9 811217 likely secondary to CKD, and her anemia is now below 10, at Hgb 9.7.Leanne al, her stool was hemoccult positive. She feels she is too old for a GI w/u. she did see hematology and they recommende d IV iron, which helped. Postural dizziness 82231 7008 R42 R55 [id number] Recommend repeating carotid ultrasound and she agrees. Its been several years, But she says there was no significan t obstructio n when last checked. Requires i nfluenza virus vaccination 652841156 Z23 [id number] Health Concerns Section Related Observation LastModified by Organization Detai ls LastModified Time None Recorded Concern Status LastModified by Organization Details LastModified Time None Recorded Payers Encounter Date Sequence Insurance Name Policy Number Policy Dorsey Covered Member ID Dorsey Member ID Guarantor Name 07/12/2025 1 [place] Marlen Alejo [id number] Marlen Alejo 07/12/2025 2 [place] [address] Fairchild Melo [id number] Marlen Alejo Notes Date Note Type Note Provider Name and Address Organization Details Recorded Time 07/12/2025 text/html The patient is here to discuss the recent fasting labs, which are shown above. They are reviewed in detail with the patient, and All normal and abnormal results are explained. All questions answered to the patient's satisfaction today. BRI TEAGUE MD [facility] [place], [place], [id number], [address] 07/13/2025 06:37:07 OBGyn Episode No OBEpisode recorded.
--- OUTSIDE RECORDS SUMMARY | 2025-10-08 11:19 | XMS_ITS | Data Portability ---
Author Organization [place] [facility] [place], Main Office Address [address] [facility] [address] [place] [address] Care Team Providers Care Trumpet Teacher Name Role Phone MARI WILSON OTHER WILBUR TEAGUE Primary Care Provider Assessment Encounter Date Assessment Date Assessment LastModified by Organization Details LastModified Time 10/13/2024 10/13/2024 Falls: Number of falls in the past year: 0 ju Not available 10/13/2024 13:40:28 07/12/2025 07/12/2025 [place] [...] [place] to her and her now- . jodyola Not available 07/13/2025 06:36:58 Plan of Treatment Reminders Order Date Submit Date Provider Last Modified By Organization Details Last Modified Time Details Appointments *[facility] Perez ess 30 2025 12:00P M Wilbur Teague MD Not available Not available Not available Lab infec tious disea se panel 2023 024 [facility], [address], [place], [address], 10/15/2024 10:32:01 Referral None recor ded. Procedures None recor ded. Surgeries None recor ded. Imaging US, duple x, carot id arter y [address] [facility], [address] [facility], [place], [address], 05/14/2025 08:56:06 US, echoc ardio gram, trans thora cic, compl ete, w/ color flow 2024 025 [email or web address], [address], [place], [address], 08/22/2025 06:35:05 Medication Orders omepr azole 20 mg capsu le,de layed relea se 2024 025 [facility], [address], [place], [place], [id number], 05/10/2025 11:17:54 atorv astat in 80 mg table t 2024 025 [facility], [address], [place], [place], [id number], 05/10/2025 11:18:04 clona zepam 0.5 mg table t 2024 025 [facility] #03212, [address], [place], [place], [id number], 05/10/2025 11:17:43 triam teren e 37.5 mg-hy droch lorot hiazi de 25 mg table t 2024 025 [facility] #74607, [address], [place], [place], [id number], 05/10/2025 11:17:56 losar lucas 100 mg table t 2024 025 [facility]99055, [address], [place], [place], [id number], 05/10/2025 11:17:50 metop rolol tartr ate 50 mg table t 2024 025 [facility] #23013, [address], [place], [place], [id number], 05/10/2025 11:17:47 amlod ipine 5 mg table t [address] [place] [address] [facility] #55372, [address], [place], [place], [id number], 07/12/2025 13:02:17 triam teren e 37.5 mg-hy droch lorot hiazi de 25 mg table t 2024 025 [facility]17, [address], [place], [place], [id number], 01/12/2025 11:56:19 omepr azole 20 mg capsu le,de layed relea se 2023 024 [facility], [address], [place], [place], [id number], 10/13/2024 13:48:26 atorv astat in 80 mg table t 2023 024 [facility] #54976, [address], [place], [place], [id number], 10/13/2024 13:48:26 levot hyrox ine 88 mcg table t 2023 024 [facility] #16991, [address], [place], [place], [id number], 10/13/2024 13:48:26 amlod ipine 5 mg table t 2023 024 [facility] #45717, [address], [place], [place], [id number], 10/13/2024 13:48:26 losar lucas 100 mg table t 2023 [facility], [address], [place], [place], [id number], 10/13/2024 13:48:26 metop rolol tartr ate 50 mg table t 2023 [facility], [address], [place], [place], [id number], 10/13/2024 13:48:26 triam teren e 37.5 mg-hy droch lorot hiazi de 25 mg table t 2023 024 [facility] #85659, [address], [place], [place], [id number], 10/13/2024 13:48:26 sertr carlos 50 mg table t 2023 024 [email or web address], [address], [place], [place], [id number], 12/14/2024 11:08:54 Zithr omax Z-Ned 250 mg table t 2023 024 [facility] #19617, [address], [place], [place], [id number], 05/10/2025 10:55:04 oselt amivi r 30 mg capsu le 2023 024 [email or web address] #72385, [address], [place], [place], [id number], 05/10/2025 10:55:09 Patient TargetsNo targets recorded. Patient Instructions Encounter Date Encounter Id Patient Instructions Last Modified By Organization Details Last Modified Time 10/13/2024 [id number] multi-dimensiona l health assessment questionnaire* ascol[facility] Not available 10/13/2024 13:48:28 advance directiv es: care instructions ascola Not available 10/13/2024 13:48:25 Advance Care Directives Patient WebLink Handout ascola Not available 10/13/2024 13:48:25 hearing loss: ca re instructions ascola Not available 10/13/2024 13:48:25 heart-healthy di et: care instructions ascola Not available 10/13/2024 13:48:25 dash diet: care instructions ascola Not available 10/13/2024 13:48:25 preventing falls : care instructions ascola Not available 10/13/2024 13:48:25 anemia: care instructions ascola Not available 10/13/2024 13:48:25 high cholesterol : care instructions ascola Not available 10/13/2024 13:48:26 bronchitis: care instructions ascola Not available 10/13/2024 13:48:25 Personalized [facility] lt Plan and Screening Recommendations Advance Directives - Do you have one? Yes Advance Directives - Do we have your advance directive on file in your health record? Yes Primary Prevention/Intervent ion (prevents or decreases the chance of common diseases from occurring) Tobacco/Nicotine Risk: Non-Smoker Alcohol Misuse Screening: Low risk Weight: Appropriate Physical activity: Increase exercise/physical activity level Nutrition: Good Fall Risk (screened today): At risk, please refer to handout P reventing Falls: Care Instructions Recommend regular use of cane or walker Vaccines Influenza: Your next one in the fall of next year Pneumococcal: Series completed Shingles: Series completed COVID-19: Series and booster completed Respiratory Syncytial Virus (RSV): Recommended. There may be an out of pocket cost for preventive services Tetanus: Not indicated Hepatitis B: Secondary Prevention/Intervent ion (detects treatable diseases before they may cause symptoms, disability, or ) Breast Cancer Screening with mammogram: not indicated Cervical Cancer Screening: not indicated Osteoporosis Screening: not indicated Colon Cancer Screening: No screening necessary Eye Disease Screening: Per your eye care provider Hearing Screening: Recommended Depression Screening: Moderate to High risk Continue your current depression treatment Cognitive Screening: Normal Diabetes Screening: Performed/Ordered today Cardiovascular Disease (CVD) Screening: labs - Performed/Ordered today Aspirin Recommendations: you are at increased risk Daily aspirin recommended Abdominal Aortic Aneurysm (AAA) Screening: Not indicated Lung Cancer Screening: Not indicated Hepatitis/Sexually Transmitted Infection (STI)/Human Immunodeficiency Virus (HIV) Screenings: Tertiary Prevention/Intervent ion (identifies your current known diseases and attempts to prevent complications of those diseases) Complications of many of these diseases can be minimized through the primary prevention/intervent ions listed above but some may require medication addition/change or referrals and will be addressed today or at a follow-up appointment Pain Control Status: no pain or pain under adequate control Pain Medication Use and Risk for Opioid Misuse: You do not use addictive opioid medications, and therefore are not at risk Pain Management Plan: No interventions or changes required, alternative therapies have been assessed and documented in your chart ascola Not available 10/13/2024 13:44:18 12/14/2024 [id number] iron deficiency anemia: care instructions scera Not available 12/15/2024 10:27:09 01/12/2025 [id number] grief (actual/anticipated) : care instructions ascola Not available 01/12/2025 11:56:13 high blood press ure: care instructions ascola Not available 01/12/2025 11:56:13 learning about h igh blood pressure ascola Not available 01/12/2025 11:56:12 05/10/2025 [id number] lightheadedness or faintness: care instructions ascola Not available 05/10/2025 11:17:32 lightheadedness or faintness: care instructions ascola Not available 05/10/2025 11:17:32 07/12/2025 [id number] high blood press ure: care instructions ascola Not available 07/12/2025 13:27:37 learning about h igh blood pressure ascola Not available 07/12/2025 13:27:37 Reason for Referral None Reported. Results Created Date Observation Date Name Description Value Unit Range Abnormal Flag Note LastModifiedBy Organization Detail LastModifiedTime 10/13/20 24 10/15/2024 PNEUM ONIA tet B, tet M 25.166 ppm 23.000 - 27.778 abnormal Detec basim Not Available [facility] [address], [place], [address], 10/15/2024 10:32:01 10/13/20 24 10/15/2024 PNEUM ONIA ermb, C; mefa 25.607 ppm 23.000 - 27.611 abnormal Detec basim Not Available [facility] [address], [place], [address], 10/15/2024 10:32:01 10/13/20 24 10/15/2024 PNEUM ONIA streptococcu s pyogenes (group A strep) 0.000 ppm 19.961 - 24.689 normal Not Detec basim Not Available [facility] [address], [place], [address], 10/15/2024 10:32:01 10/13/20 24 10/15/2024 PNEUM ONIA streptococcu s pneumoniae 24.743 ppm 19.961 - 24.689 abnormal Detec basim Not Available [facility] [address], [place], [address], 10/15/2024 10:32:01 10/13/20 24 10/15/2024 PNEUM ONIA streptococcu s agalactiae (group B strep) 0.000 ppm 19.961 - 24.689 normal Not Detec basim Not Available [facility] [address], [place], [address], 10/15/2024 10:32:01 10/13/20 24 10/15/2024 PNEUM ONIA staphylococc us aureus 0.000 ppm 19.961 - 24.689 normal Not Detec basim Not Available [facility] [address], [place], [address], 10/15/2024 10:32:01 10/13/20 24 10/15/2024 PNEUM ONIA serratia marcescens 0.000 ppm 19.961 - 24.689 normal Not Detec basim Not Available [facility] [address], [place], [address], 10/15/2024 10:32:01 10/13/20 24 10/15/2024 PNEUM ONIA respiratory syncytial virus (rsvb_VI9999 0015_po) 0.000 ppm 23.000 - 31.722 normal Not Detec basim Not Available [facility] [address], [place], [address], 10/15/2024 10:32:01 10/13/20 24 10/15/2024 PNEUM ONIA pseudomonas aeruginosa 0.000 ppm 19.961 - 24.689 normal Not Detec basim Not Available [facility] [address], [place], [address], 10/15/2024 10:32:01 10/13/20 24 10/15/2024 PNEUM ONIA proteus mirabilis, vulgaris 0.000 ppm 19.961 - 24.689 normal Not Detec basim Not Available [facility] [address], [place], [address], 10/15/2024 10:32:01 10/13/20 24 10/15/2024 PNEUM ONIA parainfluenz a virus (types 1, 2, 3, 4) 0.000 ppm 23.000 - 31.313 normal Not Detec basim Not Available [facility] [address], [place], [address], 10/15/2024 10:32:01 10/13/20 24 10/15/2024 PNEUM ONIA mycoplasma pneumoniae 0.000 ppm 19.961 - 24.689 normal Not Detec basim Not Available [facility] [address], [place], [address], 10/15/2024 10:32:01 10/13/20 24 10/15/2024 PNEUM ONIA moraxella catarrhalis 0.000 ppm 19.961 - 24.689 normal Not Detec basim Not Available [facility] [address], [place], [address], 10/15/2024 10:32:01 10/13/20 24 10/15/2024 PNEUM ONIA legionella pneumophila 0.000 ppm 19.961 - 24.689 normal Not Detec basim Not Available [facility] [address], [place], [address], 10/15/2024 10:32:01 10/13/20 24 10/15/2024 PNEUM ONIA klebsiella pneumoniae, oxytoca 0.000 ppm 19.961 - 24.689 normal Not Detec basim Not Available [facility] [address], [place], [address], 10/15/2024 10:32:01 10/13/20 24 10/15/2024 PNEUM ONIA influenza virus B 0.000 ppm 23.000 - 30.081 normal Not Detec basim Not Available [facility] [address], [place], [address], 10/15/2024 10:32:01 10/13/20 24 10/15/2024 PNEUM ONIA human metapneumovi stacy 0.000 ppm 23.000 - 32.210 normal Not Detec basim Not Available [facility] [address], [place], [address], 10/15/2024 10:32:01 10/13/20 24 10/15/2024 PNEUM ONIA haemophilus influenzae 0.000 ppm 19.961 - 24.689 normal Not Detec basim Not Available [facility] [address], [place], [address], 10/15/2024 10:32:01 10/13/20 24 10/15/2024 PNEUM ONIA escherichia coli 0.000 ppm 19.961 - 24.689 normal Not Detec basim Not Available [facility] [address], [place], [address], 10/15/2024 10:32:01 10/13/20 24 10/15/2024 PNEUM ONIA enterovirus D68 0.000 ppm 23.000 - 32.117 normal Not Detec basim Not Available [facility] [address], [place], [address], 10/15/2024 10:32:01 10/13/20 24 10/15/2024 PNEUM ONIA coronaviruse s (229E, nl63, hku1, oc43) (g_betacoron avirus_1_g_c oronavirus_h ku1) 0.000 ppm 23.000 - 31.416 normal Not Detec bsaim Not Available [facility] [address] [place] [address] [address], [place], [address], 10/15/2024 10:32:01 10/13/20 24 10/15/2024 PNEUM ONIA chlamydia pneumoniae 0.000 ppm 19.961 - 24.689 normal Not Detec basim Not Available [facility] [address], [place], [address], 10/15/2024 10:32:01 10/13/20 24 10/15/2024 PNEUM ONIA bordetella pertussis, parapertussi s, bronchisepti ca 0.000 ppm 19.961 - 24.689 normal Not Detec basim Not Available [facility] [address] [place] [address] [address], [place], [address], 10/15/2024 10:32:01 10/13/20 24 10/15/2024 PNEUM ONIA acinetobacte r baumannii 0.000 ppm 19.961 - 24.689 normal Not Detec basim Not Available [facility] [address] [place] [address] [address], [place], [address], 10/15/2024 10:32:01 10/13/20 24 10/15/2024 PNEUM ONIA covid-19 coronavirus (sars-cov-2) 0.000 ppm 23.000 - 32.500 normal Not Detec basim Not Available [facility] [address], [place], [address], 10/15/2024 10:32:01 10/13/20 24 10/15/2024 PNEUM ONIA rhinovirus/e nterovirus (RV_1of2_VI9 9990016_po) 22.107 ppm 23.000 - 33.906 abnormal Detec basim Not Available [facility] [address], [place], [address], 10/15/2024 10:32:01 10/13/20 24 10/15/2024 PNEUM ONIA adenovirus (adv_1of2_VI 99990001_po) 0.000 ppm 23.000 - 31.943 normal Not Detec basim Not Available [facility] [address], [place], [address], 10/15/2024 10:32:01 10/13/20 24 10/15/2024 PNEUM ONIA enterobacter aerogenes, cloacae 0.000 ppm 19.961 - 24.689 normal Not Detec basim Not Available [facility] [address], [place], [address], 10/15/2024 10:32:01 11/02/19 25 11/02/2024 mg mammo scree griselda bilat eral W [facility] MRN:[id number] t: : 89 Sex Female : Locati o [facility] n: Orderi ng Physic madelyn: RHETT TEAGUE MD Mammog tee ACCESS ION EXAM DATE/T MARCI 520-25 -[id number] 0385 025 09:08 EST Reason For Exam Z12.31 Report PROCED URE INFORM ATION: Exam: MG Bilate ral Screen ing 3D Mammog tee Exam date and time: 025 9:05 AM Age: 89 years old Clinic al indica tion: Screen ing examin ation; Additi onal info: Z12.31 TECHNI QUE: Imagin g protoc ol: Bilate ral Screen ing tomosy nthesi s and 2D mammog tee includ ing comput er-aid ed detect ion (CAD) when perfor med. COMPAR SOLEDAD: 1. MG Mammo Screen ing Bilate ral W Hang 024 1:01 PM 2. MG Mammo Screen ing Bilate ral W Hang 2021 2:44 PM FINDIN GS: The breast tissue is compos ed of scatte red areas of fibrog landul ar densit y. Densit y catego ry B. There is no jovanna te mass, maddie ectura l distor tion or suspic ious microc alcifi cation s in either breast to sugges t malign lyudmila. No skin thicke griselda or axilla ry adenop athy. IMPRES JAKE: No mammog raphic eviden ce of malign lyudmila. Annual mammog raphic screen ing is recomm ended unless otherw ise clinic ally indica basim. ASSESS MENT: BI-RAD S Catego ry 1: Negati ve Recomm end routin e annual screen ing mammog tee. COMMEN TS: Per Wenceslao a Senate Ruling 381.93 3, Patien ts with dense breast s(terence gory C or D) will receiv e a letter statin g that small abnorm alitie s are diffic ult to detect in dense breast tissue and may benefi t from supple mentar y screen ing tests, specif ically if the patien t is at high risk for breast cancer . Arturo Hightower MD On 2024 09:27: 45; VR-MXL 4284H3 L Final Signed by: ARTURO HIGHTOWER MD Signed (Elect dino Signat ure): 2024 09:27 am EST [facility] [address] [place], [address], 01/13/2025 06:24:31 05/14/20 25 05/14/2025 US, rosario mcnamara id [facility] MARLEN CASON MRN:[id number] t: : 89 Sex Female : Locati o [facility] CNI n: Orderi ng Physic madelyn: RHETT TEAGUE MD Ultras ound ACCESS ION EXAM DATE/T MARCI 520-25 -[id number] [id number] 05/14/20 08:06 EDT Reason For Exam R55 Report PROCED URE INFORM ATION: Exam: US Duplex Bilate ral Extrac ranial Arteri es; Comple te; Caroti d Arteri es Exam date and time: 05/14/20 7:41 AM Age: 89 years old Clinic al indica tion: R55 TECHNI QUE: Imagin g protoc ol: Real-t marci duplex ultras ound scan of the bilate ral extrac ranial arteri es combin ing vee scale, color Dopple r and spectr al wavefo rm analys is with image docume ntatio n. Comple te exam. Exam focuse d on the caroti d arteri es. COMPAR SOLEDAD: No releva nt prior studie s availa ble. FINDIN GS: Right common caroti d artery : No acute occlus ion or high grade stenos is. Wavefo francisco are normal . Right electrical engineering intern al caroti d artery : No acute occlus ion or high grade stenos is. Wavefo francisco are normal . Right ICA/CC A ratio: Within normal limits . Right brick machine operator al caroti d artery : No stenos is at the origin . Right verteb ral artery : Antegr khurram flow. Left common caroti d artery : No acute occlus ion or high grade stenos is. Wavefo francisco are normal . Left electrical engineering intern al caroti d artery : No acute occlus ion or high grade stenos is. Wavefo francisco are normal . Left ICA/CC A ratio: Within normal limits . Left brick machine operator al caroti d artery : No stenos is at the origin . Left verteb ral artery : Antegr khurram flow. IMPRES JAKE: 0 - 49% caroti d stenos is REFERE NCES: SRU CRITER IA. The degree of electrical engineering intern al caroti d artery stenos is is based on criter ia define d by the Societ y of Radiol ogists in Ultras ound (SRU). Normal is no stenos is. Mild is less than 50% stenos is. Modera te is 50-69% stenos is. Severe is greate r than 69% stenos is to near occlus ion. Near occlus ion is a marked ly narrow ed lumen. Total occlus ion is no detect able patent lumen. Refere nce: [place], et al. Jamil merlos Artery Stenos is: Vee-S les and Baltazar r US Diagno sis-So ciety of Radiol ogists in Ultras ound Consen mackenzie Confer ence. Radiol ogy 2003; 229:34 0-346. Ultras ound Report Benji Boyle MD On 2024 08:55: 42; VR-MXL [id number] 1 Final Signed by: BENJI BOYLE MD Signed (Elect dino Signat ure): 2024 08:55 am EDT [facility] [address] [place], [address], 07/13/2025 06:36:01 07/22/20 25 05/14/2025 elect alejandro castillogr am No observ ation record ed. BARCODE Not Available 2024 17:10:47 Result Notes None recorded. Problems Name Problem SNOMED Code Status Onset Date Resolution Date Notes Provider Name and Address Organization Details Recorded Time Anxiety 84225992 Active Not Available [facility] 0 14:15:17 Gastroes ophageal reflux disease 710951546 Active Not Available [facility] 0 14:15:17 Chronic kidney disease stage 3 470479743 Completed 01/20/2020 Removal Reason: More precise descript ion 3b Walt Freitas MD [address], [address] , 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 Not Available [facility] 0 14:15:17 Benign essentia l hyperten jake 8507563 Active Not Available [facility] 0 14:15:17 Anemia of chronic disease 304071892 Active Not Available [facility] 0 14:15:17 Impacted cerumen 56102516 Completed 01/20/2020 Walt Freitas MD [address], [address], [address] , [address] 0 10:49:28 Generali zed headache 990845312 Completed 01/20/2020 Removal Reason: has not been a problem recently Walt Freitas MD [address] [place] [address], [place], [address] , [address] 0 16:50:16 Benign paroxysm al position al vertigo 442298735 Completed 01/20/2020 Removal Reason: resolved Walt Freitas MD [address], [place] [address], [place], [address] , [address] 0 16:49:55 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 Not Available [facility] 0 14:15:17 Anemia 149110103 Completed 201701/20/2020 Walt Freitas MD [address], [address], [address] , [address] 0 10:49:10 Chronic kidney disease stage 3B 047736651 Active 2019 Not Available [facility] 0 14:15:17 Chronic insomnia 350012462 Active 2020 Walt Freitas MD [address], [address], [address] , [address] 1 20:01:38 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 The following is a summary of the office evaluation on 12/14/2024 for your records.Encounter ReasonTransition of Care Encounter new patientVitals BP Cuff Size: adult12/14/2024 11:11 am BP Measurement Method: [id number]/14/2024 11:12 am BP: 153/76 sitting L arm12/14/2024 11:12 am Pulse: 56 bpm [id number]/14/2024 11:12 am RR: 18012/14/2024 11:12 am O2Sat: 98% Room Air at Rest12/14/2024 11:12 am Ht: 5 ft 2 in (157.48 cm)12/14/2024 11:08 am Pain Scale: 11:12 am History of Present Illnesscc chronic iron def anemia HPI:89-year-old with chronic iron deficiency anemia.Hb 9.2 She sees an oncologist locally (Dr Soni) but has also seen an oncologist in [place] for ongoing care. She has poor toleration of IV iron infusions. Her last colonoscopy was by me in 2013 for history of polyps. The colonoscopy was completely normal. recently she had a positive fecl occult blood testNo abdominal pain or GI symptomsAssessment and Plan1.Iron deficiency anemia, unspecified iron deficiency anemia typeThis is an 89-year-old female with chronic iron deficiency anemia that she has had for many years. She has had several workups in the past that include bone marrow biopsies etc. She also gets iron infusions regularly. I called Dr. Soni on the phone to ensure that I was not missing any details of her history. He explains that he sent her because of the iron deficiency plus the fecal occult blood test that was positive. The patient is not having any other symptoms. We had a long discussion about her options today. She is 89 years old and claims she has had a happy life. She explains that even if a cancer is found on colonoscopy she would not want to have surgery for it. She does not want any invasive testing such as scopes. I understand and respect her wishes. She may always return to see me if the situation changes or if she has any further questions.D50.9: Iron deficiency anemia, unspecified IRON DEFICIENCY ANEMIA: CARE INSTRUCTIONS Return to Office WILBUR TEAGUE MD for *Follow-up 15 at [facility] on 01/12/2025 at 11:30 AM WILBUR TEAGUE MD for *Medicare Annual Wellness 30 at [facility] 200 on 10/13/2025 at 11:00 AM Once again, thank you for entrusting me with the care of your patient and allowing me to participate in their assessment and evaluation. Sincerely, Electronically Signed by: MD WILBUR WIN CERA, MD [address] [place] [address], [id number] [address] 01/13/2025 06:24:32 Procedures Surgical History Date Name Laterality Status Provider Name and Address Organization Details Recorded Time 11/02/19 25 Date of Last Mammogram completed Kiki Duncan [facility] - [address] 05/10/2025 10:55:37 10/13/20 24 Medicare Wellness CPT Code, Subsequent completed Rock Renteria LPN [address] 10/13/2024 13:05:49 10/10/20 23 Medicare Wellness CPT Code, Subsequent completed Smitha Mcdermott Supervisor [employer] [address] 10/09/2023 07:52:12 10/04/20 22 Medicare Wellness CPT Code, Subsequent completed Tim Maldonado [address] 10/04/2022 13:01:18 01/17/20 22 Most Recent Bone Density completed Kiki Duncan [facility] [place] 01/02/2023 12:15:57 07/07/20 21 Medicare Wellness CPT Code, Subsequent [facility] [place] 07/07/2021 10:32:52 07/12/20 20 Medicare Wellness CPT Code, Subsequent [facility] [address] 07/12/2020 13:51:38 01/20/20 20 Telehealth Communication completed Radha Artis [address] 01/20/2020 10:00:33 07/08/20 19 Medicare Wellness CPT Code, Initial completed Rula Cevallos RN [address] 07/08/2019 14:38:30 10/14/19 14 Date of Last Colonoscopy completed Kiki Duncan , [address] 01/02/2023 12:15:43 10/14/18 74 Hysterectomy completed Bayron Knapp,[address] 07/12/2020 14:00:15 Appendectomy completed MARCELLO Black [address] 12/14/2024 11:10:27 Angioplasty completed Cassidy Espinoza ,[address] 09/23/2014 12:37:41 Imaging Results None recorded. Procedure Notes None recorded. Medical Equipment None Reported. Allergies Allergen ID Allergen Name Allergen Category Reaction Reaction Severity Criticality Documentation Date Start Date Code Code System Note Provider Name and Address Organization Details Recorded Time 916396 morphine medicatio n Not available Not available Not available 09/23/2014 7052 RxNorm Beronica Espinoza[address] 12:34:41 338191 meperidin e medicatio n Not available Not available Not available 09/23/2014 6754 RxNorm Beronica Espinoza[address] 4 12:34:41 574065 Demerol medicatio n Not available Not available Not available 02/26/2018 77456 1 RxNorm SOB Mulu Quick.[address] 8 09:09:27 Medications Name Sig Start [...] Not Available Vitals Date Recorded Body height Heart rate Respiratory rate Oxygen saturation Pain severity - 0-10 verbal numeric rating [Score] - Reported Systolic And Diastolic Provider Name and Address Organization Details Last Updated DateTime 5 157.48 cm 56 /min 18 /min 98 % 0 153/76 mm[Hg] MARCELLO Black [facility] [place] 11:12:04 Date Recorded Body height Body mass index (BMI) Body weight Heart rate Oxygen saturation Respiratory rate Systolic And Diastolic Provider Name and Address Organization Details Last Updated DateTime 157.48 cm 18.9 kg/m2 74603.1 7 g 60 /min 100 % 16 /min 152/73 mm[Hg] Vialine Orcel , [address] 11:34:40 Date Recorded Systolic And Diastolic Provider Name and Address Organization Details Last Updated DateTime 05/10/2025 131/65 mm[Hg] Kady ESPIONZA [address] [place] [address], [phone] [place] 05/10/2025 11:07:24 Date Recorded Body height Body mass index (BMI) Body weight Heart rate Respiratory rate Oxygen saturation Pain severity - 0-10 verbal numeric rating [Score] - Reported Systolic And Diastolic Provider Name and Address Organization Details Last Updated DateTime 157.48 cm 19.2 kg/m2 82742.2 g 65 /min 16 /min 98 % 0 146/74 mm[Hg] Vialine Orcel , [facility]14 [place] 10:57:37 Date Recorded Body height Body mass index (BMI) Body weight Heart rate Respiratory rate Oxygen saturation Pain severity - 0-10 verbal numeric rating [Score] - Reported Systolic And Diastolic Provider Name and Address Organization Details Last Updated DateTime 157.48 cm 19.6 kg/m2 19052.3 8 g 62 /min 16 /min 97 % 0 124/63 mm[Hg] Vialine Orcel , [facility] [place] 13:02:36 Date Recorded Systolic And Diastolic Provider Name and Address Organization Details Last Updated DateTime 10/13/2024 138/74 mm[Hg] Kady ESPINOZA [address] [place] [address], [phone]14 [place] 10/13/2024 13:28:53 Date Recorded Body height Body mass index (BMI) Body weight Respiratory rate Pain severity - 0-10 verbal numeric rating [Score] - Reported Body temperature Heart rate Oxygen saturation Systolic And Diastolic Systolic And Diastolic Provider Name and Address Organization Details Last Updated DateTime 4 157.48 cm 18.3 kg/m2 30386.2 4 g 16 /min 0 98.5 [degF] 63 /min 98 % 143/72 mm[Hg] 150/76 mm[Hg] Rock Renteria HEAD STOCK TRANSFER CLERK [address] 4 13:14:42 Social History Question Answer Notes LastModified by Organizat ion Details LastModified Time Tobacco Smoking Status Former Smoker Cassidy Espinoza ,SENIOR ENVIRONMENTAL PRACTICE LEADER [facility], [address] 09/23/2014 12:34:12 Do You Have An Advance Directive? Yes [email or web address] Information not available 10/04/2022 Are You Blind Or Do You Have Difficulty Seeing? No [email or web address] Information not available 10/04/2022 What Is Your Level Of Caffeine Consumption? Occasional 1 Cup Of Coffee A Day Decaff [email or web address] Information not available 10/04/2022 Are You Deaf Or Do You Have Serious Difficulty Hearing? No [email or web address] Information not available 10/04/2022 What Type Of Diet Are You Following? REGULAR [email or web address] Information not available 10/04/2022 What Is The Highest Grade Or Level Of School You Have Completed Or The Highest Degree You Have Received? [id number] [email or web address] Information not available 10/04/2022 Which Of Your Hands Is Dominant? Right [email or web address] Information not available 10/04/2022 Do You Have A Medical Power Of Community Associate? Yes [email or web address] Information not available 10/04/2022 What Was The Date Of Your Most Recent Tobacco Screening? 05/10/2025 [email or web address] Information not available 05/10/2025 How Many Children Do You Have? 3 [email or web address] Information not available 10/04/2022 What Is Your Current Pack Years? 10packyears [email or web address] Information not available 10/04/2022 What Is Your Relationship Status? [email or web address] Information not available 10/04/2022 Do You Use Your Seat Belt Or Car Seat Routinely? Yes [email or web address] Information not available 10/04/2022 Do You Have Smoke And Carbon Monoxide Detectors In Your Home? Yes [email or web address] Information not available 10/04/2022 Are You Passively Exposed To Smoke? No [email or web address] Information not available 10/04/2022 How Much Tobacco Do You Smoke? No [email or web address] Information not available 10/04/2022 Do You Use Sunscreen Routinely? Yes [email or web address] Information not available 10/04/2022 Has Tobacco Cessation Counseling Been Provided? No [email or web address] Information not available 10/04/2022 How Many Years Have You Smoked Tobacco? 8 [email or web address] Information not available 07/12/2020 Have You Recently Traveled Abroad? No [email or web address] Information not available 10/04/2022 Do You Have Difficulty Walking Or Climbing Stairs? No Information not available 10/04/2022 Sex: Unknown Functional Status Question Answer Note LastModified by [employer] ion Details LastModified Time Do you use any illicit or recreational drugs? No [email or web address] Information not available 10/04/2022 Do you or have you ever used any other forms of tobacco or nicotine? No Information not available 10/04/2022 What is your level of alcohol consumption? Occasional 1 glass of wine [email or web address] Information not available 07/12/2020 Are you currently employed? 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 No Information not available 10/04/2022 Are you able to care for yourself independently? Yes [email or web address] Information not available 10/04/2022 Do you have difficulty dressing, bathing, grooming, or toileting? No [email or web address] Information not available 10/04/2022 Mental Status Question Answer Note LastModified by Organization D etails LastModified Time Do you have difficulty concentrating, remembering or making decisions? No [email or web address] Information no t available 10/04/2022 Family History Relationship Description Onset Age of this Age Resolved Age Notes LastModified by Organization Details LastModified Time Mother Alzheimer's disease 78 [email or web address] Not available 07/12 13:58:55 Father Malignant neoplasm of lung 57 [email or web address] Not available 07/12 13:59:10 Father Hyperlipidem ia [email or web address] Not available 2015 09:18:07 Father Hypertensive disorder [email or web address] Not available 2015 09:18:07 Medical History Condition Response Coronary Artery Disease Y Hyperlipidemia Y Mammograms Y Arthritis Y Hypertension Y Gynecological History Statement/Question Response [...] quadrivalent, preservative 9 completed Vialine Orcel , SENIOR ENVIRONMENTAL PRACTICE LEADER null, [place] [facility] [place] 10/10/2023 12:09:38 Pneumococcal conjugate PCV 13 9 completed Vialine Orcel , SENIOR ENVIRONMENTAL PRACTICE LEADER [place], [place] [facility] [place] 10/10/2023 12:09:38 Hep B, unspecified formulation 0 completed Vialine Orcel , SENIOR ENVIRONMENTAL PRACTICE LEADER [place], [place] [facility] [place] 10/10/2023 12:09:38 Influenza, split virus, quadrivalent, preservative 0 completed Vialine Orcel , SENIOR ENVIRONMENTAL PRACTICE LEADER null, [place] [facility] [place] 10/10/2023 12:09:38 COVID-19, mRNA, LNP-S, PF, 100 mcg/0.5mL dose or 50 mcg/0.25mL dose 2 completed Vialine Orcel , SENIOR ENVIRONMENTAL PRACTICE LEADER [place], [place] [facility] [place] 10/04/2022 14:09:16 COVID-19, mRNA, LNP-S, PF, 100 mcg/0.5mL dose or 50 mcg/0.25mL dose 1 completed Vialine Orcel , SENIOR ENVIRONMENTAL PRACTICE LEADER [place], [place] [facility] [place] 01/02/2023 12:14:18 zoster recombinant 0 completed Vialine Orcel , SENIOR ENVIRONMENTAL PRACTICE LEADER [place], [place] [facility] [place] 10/04/2022 14:22:02 zoster recombinant 9 completed Vialine Orcel , SENIOR ENVIRONMENTAL PRACTICE LEADER [place], [place] [facility] [place] 10/10/2023 12:09:38 Tdap 9 completed Vialine Orcel , SENIOR ENVIRONMENTAL PRACTICE LEADER null, [place] [facility] [place] 10/04/2022 14:24:10 pneumococcal polysaccharide PPV23 9 completed Vialine Orcel , SENIOR ENVIRONMENTAL PRACTICE LEADER null, [address] 10/04/2022 14:25:57 Influenza, adjuvanted, trivalent, PF 9 completed Vialine Orcel , SENIOR ENVIRONMENTAL PRACTICE LEADER null, [address] 10/04/2022 14:27:28 Influenza, adjuvanted, trivalent, PF 8 completed Vialine Orcel , SENIOR ENVIRONMENTAL PRACTICE LEADER null, [address] 10/04/2022 14:28:40 Pneumococcal conjugate PCV 13 5 completed Vialine Orcel , SENIOR ENVIRONMENTAL PRACTICE LEADER null, [address] 10/04/2022 14:29:16 Novel [id number], preservative-free 0 completed Vialine Orcel , SENIOR ENVIRONMENTAL PRACTICE LEADER null, [address] 01/02/2023 12:14:19 zoster recombinant 0 completed Vialine Orcel , SENIOR ENVIRONMENTAL PRACTICE LEADER null, [address] 01/02/2023 12:14:18 Influenza, high-dose, quadrivalent, PF 1 completed Vialine Orcel , SENIOR ENVIRONMENTAL PRACTICE LEADER null, [address] 01/02/2023 12:14:18 Influenza, adjuvanted, quadrivalent, PF 2 completed Vialine Orcel , SENIOR ENVIRONMENTAL PRACTICE LEADER null, [address] 01/02/2023 12:14:18 COVID-19, mRNA, LNP-S, PF, 100 mcg/0.5mL dose or 50 mcg/0.25mL dose 1 completed Vialine Orcel , SENIOR ENVIRONMENTAL PRACTICE LEADER null, [address] 01/02/2023 12:14:18 COVID-19, mRNA, LNP-S, PF, 100 mcg/0.5mL dose or 50 mcg/0.25mL dose 1 completed Vialine Orcel , SENIOR ENVIRONMENTAL PRACTICE LEADER null, [facility] [place] 01/02/2023 12:14:18 COVID-19, mRNA, LNP-S, bivalent, PF, 50 mcg/0.5 mL or 25mcg/0.25 mL dose 2 completed Vialine Orcel , SENIOR ENVIRONMENTAL PRACTICE LEADER null, [address] 01/02/2023 12:14:18 Influenza, high-dose, trivalent, PF 4 completed Vialine Orcel , SENIOR ENVIRONMENTAL PRACTICE LEADER null, [place] [facility] [place] 10/10/2023 12:09:38 Influenza, high-dose, quadrivalent, PF 3 completed WILBUR TEAGUE MD [address] [place], [address], [facility] [place] 07/09/2023 06:26:44 Influenza, high-dose, trivalent, PF 4 completed Vialine Orcel , SENIOR ENVIRONMENTAL PRACTICE LEADER null, [place] [facility] [place] 07/15/2024 10:53:34 Influenza, high-dose, trivalent, PF 5 completed Vialine Orcel , SENIOR ENVIRONMENTAL PRACTICE LEADER null, [place] [facility] [place] 07/12/2025 13:38:58 Influenza, split virus, quadrivalent, preservative 7 completed Vialine Orcel , SENIOR ENVIRONMENTAL PRACTICE LEADER null, [place] [facility] [place] 10/10/2023 12:09:38 Influenza, split virus, quadrivalent, preservative 8 completed Vialine Orcel , SENIOR ENVIRONMENTAL PRACTICE LEADER null, [place] - [facility] [place] 10/10/2023 12:09:38 Past Encounters Encounter ID Performer Location Encounter Start Date Encounter Closed Date Diagnosis/Indication Diagnosis SNOMED-CT Code Diagnosis ICD10 Code Diagnosis IMO Codes Diagnosis Note [id number] [place] [address] [facility], [address] [address] 09/28/2014 15:30:33 10/04/2014 09:37:33 Adult health examination 640473222 annual wellness visit performed; UTD on vaccines and colonoscop y; all questions answered; recent mammogram was normal. f/u for general medical issues in 4 months Benign ess ential hypertension 1068984 Chronic ki dney disease stage 3 810825784 Coronary arteriosclerosis 85274161 Anxiety 75260991 Hypothyroidism 76494402 Pure hypercholesterolemia 261979670 Gastroesop hageal reflux disease 275075171 [id number] [place] [address] [facility], [address] [address] 01/26/2015 08:10:38 01/26/2015 09:32:01 Gastroesophageal reflux disease 356723771 will switch back to the Nexium. She denies dysphagia. Coronary arteriosclerosis 33910990 recently in hospital for chest pain that was noncardiac related. Chronic ki dney disease stage 3 600484139 renal function has been stable. Maintain adequate fluid intake and low salt diet Benign ess ential hypertension 0438389 blood pressure stable on current medication Hypothyroidism 94038336 Anemia of chronic disease 994400715 Anxiety 27205442 Impacted cerumen 16249429 both ear canals clear after irrigation and using curette; no infection [id number] ARETHA ALMENDAREZ MD [facility] [address] [place] [address] 09/18/2016 08:52:21 09/18/2016 10:19:30 Benign paroxysmal positional vertigo 541731984 H81.13 Generalized headache 162 359598 R51 Anxiety 57647862 F41.9 Intracrani al meningioma 814062478 D32.0 [id number] Walt Freitas MD [address] [facility] [address] [place] [address] 02/26/2018 08:56:41 02/26/2018 10:13:14 Hypothyroidism 95916275 E03.9 Last TSH in the euthyroid range Chronic ki dney disease stage 3 717393346 N18.3 Monitor creatinine Coronary arteriosclerosis 49733356 I25.10 Doing well without chest pain. Follow with cardiologi st as required Benign ess ential hypertension 4758862 I10 Keep blood pressure diary and take medicines as prescribed History of meningioma 11 14689990 91164 Z86.018 Currently no headaches or problems with this Anemia 902547348 D64.9 She has seen a hematologi st about this. Her last hemoglobin was under 10. MCV, however, was normal. She states she's taken iron in the past that did not raise her hemoglobin . As a side note her white cell count is low normal however platelets are within normal range. Consider checking erythropoi etin level as she does have kidney disease? [id number] Walt Freitas MD [address] [facility] [address] [place] [address] 09/17/2018 09:34:38 09/17/2018 11:14:29 Persistent insomnia 021129986 G47.09 Coronary arteriosclerosis 43087523 I25.10 Having chest pressure. 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 She would like it if needed. Caregiver role strain 12 5991590 Z73.3 Improved since her has improved. Intracrani al meningioma 690385705 D32.0 Noted. No current headache or change in vision. Anemia 962680978 D64.9 Had a bone marrow in past Last Hgb was 10.15 Sep 2018. Normocytic but hypochromi c. Pulse normal today. [id number] MD LYNETTE [address] [facility] [address] [place] [address] 07/08/2019 14:29:22 07/08/2019 15:40:01 Adult health examination 063637868 Z00.00 Screening for disorder 240205205 Z13.89 Depression screening 171 599085 Z13.31 Benign ess ential hypertension 0309443 I10 Keep blood pressure diary and take medicines as prescribed Anxiety 33518909 F41.9 She understand s the problem with this medication including increase risk of falls. [id number] MD LYNETTE [address] [facility] [address] [place] [address] 01/20/2020 09:57:01 01/20/2020 11:29:58 Benign essential hypertension 5808929 I10 Keep blood pressure diary and take medicines as prescribed Chronic ki dney disease stage 3B 232145023 N18.3 Consider discontinu ing her diuretic that she has been on for along time Anemia of chronic disease 316244150 D63.8 Monitor Anxiety 73563726 F41.9 Stable. Coronary arteriosclerosis 81051084 I25.10 Having chest pressure. Follow with cardiologi st as required Gastroesop hageal reflux disease 264253400 K21.9 Hypothyroidism 57323128 E03.9 Continue 88 mcg levothyrox ine daily. Intracrani al meningioma 917332864 D32.0 Still no current headache or change in vision. Pure hypercholesterolemia 603237551 E78.00 On lipitor 80. Consider crestor 40? [id number] Walt Freitas MD [address] [address] [place] [address] 07/12/2020 13:07:45 07/12/2020 15:38:36 Adult health examination 816492216 Z00.00 Screening for disorder 084390171 Z13.89 Depression screening 171 963984 Z13.31 Insomnia 410708279 G47.0 9 Discussed options for sleep. She has been doing clonazepam . I will try restoril in her now. We discussed potential side effects and not to drive while on this medication . Hypothyroidism 61445747 E03.9 Continue 88 mcg levothyrox ine daily. Benign ess ential hypertension 3241282 I10 Keep blood pressure diary and take medicines as prescribed [id number] Walt Freitas MD [address] [address] [place] [address] 01/02/2021 14:45:54 01/02/2021 16:26:30 Intracranial meningioma 429428677 D32.0 Still no current headache or change in vision. Chronic ki dney disease stage 3B 954605291 N18.32 GFR 30 With a creatinine of 1.6. This was done December 29, 2019 She is followed by [facility] who last saw her June 29, 2020 I reviewed that note from the physician speech language pathology assistant that saw her. 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 Also discussed her low hemoglobin at 10 Hypothyroidism 86281223 E03.9 Continue 88 mcg levothyrox ine daily. Benign ess ential hypertension 9434096 I10 I am wondering if the water pill is adding to her kidney issue? 110/60 in clinic today Chronic insomnia 2009087 04 F51.04 I discussed her insomnia with her. She says temazepam has not helped. She says she would like to use something that is nonaddicti ve. We discussed trying trazodone which she will use Coronary arteriosclerosis 32658365 I25.10 Today is feeling fine.. Follow with cardiologi st as required Gastroesop hageal reflux disease 754190302 K21.9 omeprazole 20 mg daily. Anxiety 69144774 F41.9 Stable. [id number] WILBUR TEAGUE MD [address] [facility] [address] [place] [address] 03/24/2021 12:29:36 03/24/2021 13:14:22 Nausea, vomiting and diarrhea 6726610 R11.2 The acute episode has already passed. I believe she had food poisoning. Differenti al would include viral gastroente ritis but I would expect symptoms to last longer than 6 to 7 hours. We discussed all of this and she is satisfied with that diagnosis. If her symptoms continue to increase in frequency she may benefit from referral to GI, food allergy testing, or abdominal imaging.I instructed her to follow-up with her PCP as well. Food-borne gastroenteritis 333906096 A05.9 [id number] Walt Freitas MD [address] [facility] [address] [place] [address] 04/26/2021 14:36:21 04/26/2021 15:33:47 Hyperuricemia 61110688 E79.0 Stay hydrated. Pain of to e of right foot 1491416306 88812 M79.674 possibly gout - use voltaren gel PRN Benign ess ential hypertension 8839272 I10 118/60 in clinic today Coronary arteriosclerosis 02357935 I25.10 Today is feeling fine.. Follow with cardiologi st as required Insomnia 693204578 G47.0 9 Discussed options for sleep. She has been doing clonazepam . I will try restoril in her now. We discussed potential side effects and not to drive while on this medication . [id number] MD [address]I [address] [place] [address] 07/07/2021 10:02:08 07/07/2021 11:12:57 Adult health examination 011482727 Z00.00 Screening for disorder 916048476 Z13.89 Depression screening 171 268780 Z13.31 Benign ess ential hypertension 9023129 I10 120/80 pulse of 60 in clinic today Hypothyroidism 15057716 E03.9 Continue 88 mcg levothyrox ine daily. L ast TSH was 1.98 euthyroid range Pure hypercholesterolemia 237259445 E78.00 On lipitor 80. Still consider Crestor 40 mg Gastroesop hageal reflux disease 793031519 K21.9 omeprazole 20 mg daily. Arthritis of hand 441977 005 M13.849 We discussed using turmeric [id number] MD [address]I [address] [place] [address] 01/02/2022 12:37:56 01/02/2022 13:54:14 Decreased estrogen level 843566444 E28.39 Benign ess ential hypertension 8144754 I10 110/70 pulse of 67 in clinic today Chronic insomnia 2511219 04 F51.04 Intracrani al meningioma 876148260 D32.0 Still no current headache or change in vision. Chronic ki dney disease stage 3B 669684791 N18.32 GFR April 04, 2021 She is followed by [facility] which states she has arterionep hroscleros is. Normocytic hypochromic anemia 92247246 D50.9 Monitor periodical ly. She gets tested by nephrology . Last hgb I see was 10 on December 29, 2019. [id number] WILBUR TEAGUE MD [address] [place] [address] 10/04/2022 12:50:19 10/04/2022 13:52:17 Adult health examination 469288489 Z00.00 Review of systems reviewed and discussed. Depression screening reviewed and discussed with recommenda tions as below.Foll ow risk and home safety reviewed with patient.Co gnition evaluated by use of mini cog, and found to be normal.Oth er recommenda tions found below. 10 year followup plan reviewed and updated. Please see patient instructio ns for more details.Shiela aaron instructio ns were printed for patient, and personaliz ed handout given at time of checkout. Screening for disorder 659202532 Z13.89 Depression screening 171 174907 Z13.31 Hypothyroidism 94725864 E03.9 TSH indicates adequate thyroid replacemen t therapy, and patient remains asymptomat ic. Continue thyroid replacemen t therapy and monitor TSH/T4. Patient informed of signs/symp toms of under-repl eted or over-repla zion thyroid hormone, and will contact clinic if any of these develop. Benign ess ential hypertension 3079570 I10 Hypertensi on controlled . Lifestyle modificati ons discussed including tobacco abstinence , limiting alcohol intake, low sodium diet, exercise, and weight loss as able. Home BP monitoring emphasized . Current therapy is effective and will be continued unchanged. Monitor for negative sequlae and/or medication side effects with labs as below. Patient will return for BP recheck and further recommenda tions on treatment. Pure hypercholesterolemia 009387337 E78.00 Hyperlipid emia controlled with lipids at goal on present therapy. Continue present medication and lifestyle recommenda tions unchanged. Monitor for negative sequlae and/or medication side effects with labs as below. Continue to monitor lipid panel as well. Gastroesop hageal reflux disease 011387087 K21.9 Stable on omeprazole which we will continue unchanged since she has failed efforts to taper in the past. Anxiety 21662975 F41.9 I will refill her clonazepam and she can continue to use it as needed. Currently using a few times a week. Screening for malignant neoplasm of breast 260108249 Z12.39 Coronary arteriosclerosis 18204767 I25.10 Stable, essentiall y asymptomat ic.Follows with Dr. Jyotsna Lewis ki dney disease stage 3B 129432648 N18.32 Chronic, not changing.Gurinder gutierrez with nephrology , Dr. Franklin Carotid bruit 134702320 R09.89 Recommend repeating carotid ultrasound and she agrees. Its been several years, But she says there was no significan t obstructio n when last checked. [id number] WILBUR TEAGUE MD [address] [place] [address] 01/02/2023 11:47:49 01/02/2023 12:56:02 Benign essential hypertension 6816930 I10 uncontroll ed.Conside red increasing medication but decided not to based on previous good control, And home readings that are nearly at goal.Recom mended to resume AHBPM and f/u in 2 months, And follow-up with home readings for reassessme nt Chronic ki dney disease stage 4 693104441 N18.4 Stable, chronicGFR 29. following with Dr. Franklin Hypothyroidism 31819128 E03.9 stable TSH - 2.2continu e thyroxine 88 mcg Coronary arteriosclerosis 82044969 I25.10 Stable, essentiall y asymptomat ic.Follows with Dr. Goyal [id number] WILBUR TEAGUE MD [address] [place] [address] 03/04/2023 13:00:37 03/04/2023 14:27:37 Chronic kidney disease stage 3B 567255017 N18.32 Chronic, not changing.F olemilying with nephrology , Dr. Jiménez ck labs prior to next office visit Hypothyroidism 85853263 E03.9 stable TSH - 2.2continu e thyroxine 88 mcg Coronary arteriosclerosis 16006387 I25.10 Stable, essentiall y asymptomat ic.s/p PCI and stent after [place] in 1998.Sultana ws with Dr. Itzel le beta-block er, statin, and aspirin Essential hypertension 57052067 I10 * BP this morning was 128/68 with electronic Omron cuff.Hyper tension controlled . Decided to continue amlodipine , losartan, metoprolol unchanged. She will also continue triamteren e, now Saturday through Saturday only per nephrology recommenda tions. Hyperlipidemia 97098887 E78.5 Chronic, suboptimal with total cholestero l 210. Much improved though from previous cholestero l 420 at the time of her [place] in 1998Contin ue 80 mg atorvastat in [id number] WILBUR TEAGUE MD [address] [place] [address] 07/08/2023 13:59:14 07/08/2023 14:01:56 Administration of influenza vaccine 28926187 Z23 [id number] [facility] [address] [facility] [address] [place] [address] 07/25/2023 07:32:23 07/25/2023 08:15:40 COVID-19 764929173 U07.1 New: productive cough with associated nasal congestion , low-grade fevers, body aches, diarrhea, postnasal drip ongoing for the past 6 days. Rapid antigen COVID-19 is positive. unable to start antiviral as it is day 6 of symptoms. z pack started. Tessalon Perles started. Pt will remain in self quarantine to their home. Pt will take a temperatur e 2-3 times daily and keep a daily log. If Pt. has intractabl e fever that is not relieved by tylenol every 4-6 hours, or Worsening SOB, they are to report to the local ER for care and identify themselves as Positive for Covid 19 upon arrival. Wear masks (N95) when around others outside the home if you have to go out. Try to have groceries and medicines delivered and left on the doorstep to avoid spread. Advised to drink plenty of fluids, run a cool-mist humidifier in room at night, Tylenol/Ib uprofen for fever or discomfort , warm fluids for sore throat, and get plenty of rest. Patient should avoid over-exert ion and reduce exposure to irritants such as smoke, cold, dry air, and dust. Antihistam ine and decongesta nt usage was discussed and recommenda tions made. Discussed disease presentati on, treatment options, progressio n, complicati ons, and outcomes with patient during this office visit. Patient has expressed understand ing and is in agreement of plan of care. [id number] WILBUR TEAGUE MD [address] [facility] [address] [place] [address] 10/10/2023 11:49:23 10/10/2023 12:39:03 Adult health examination 520446303 Z00.00 Review of systems reviewed and discussed. Depression screening reviewed and discussed with recommenda tions as below.Foll ow risk and home safety reviewed with patient.Co gnition evaluated by use of mini cog, and found to be normal.Alc ohol and depression screening and counseling as follows:Ti me Spent:Alco hol screening 1 minute, and counseling 0 minutesDep ression Screening 1 minute, and counseling 0 minutesOth er recommenda tions found below. 10 year followup plan reviewed and updated. Please see patient instructio ns for more details.Shiela aaron instructio ns were printed for patient, and personaliz ed handout given at time of checkout. Screening for disorder 641911431 Z13.89 Depression screening 171 016950 Z13.31 Essential hypertension 07965631 I10 * BP this morning was 135/70 with electronic Omron cuff.Hyper tension controlled . Decided to continue amlodipine , losartan, metoprolol unchanged. She will also continue triamteren e, now Saturday through Saturday only per nephrology recommenda tions. Benign ess ential hypertension 9612383 I10 controlled .Considere d increasing medication but decided not to based on previous good control, And home readings that are nearly at goal.Recom mended to resume AHBPM and f/u in 2 months, And follow-up with home readings for reassessme nt Pure hypercholesterolemia 711906210 E78.00 Hyperlipid emia controlled with lipids at goal on present therapy.la bs are due to be repeated in 10/2023, and were ordered by nephrology Anxiety 93810168 F41.9 I will refill her clonazepam and she can continue to use it as needed. Currently using a few times a week. Hypothyroidism 28590856 E03.9 stable TSH - 2.2continu e thyroxine 88 mcg Gastroesop hageal reflux disease 096732403 K21.9 Stable on omeprazole which we will continue unchanged since she has failed efforts to taper in the past. Osteopenia 398719791 M85 .88 Intracrani al meningioma 222082207 D32.0 MRI report and findings are reviewedre assurance that she has no additional neurologic pathologic processnot liang me of acute neurologic changes and return on a when necessary basis [id number] WILBUR TEAGUE MD [address] [place] [address] 04/13/2024 11:10:40 04/13/2024 11:46:38 Caregiver role strain 725560368 Z73.3 Worsened. Caring for Efrain through hospice.Manoj morin took zoloft many years ago for her daughter's accident. Would recommend starting an SSRI again.Will plan to f/u in 3 months Anxiety 46053036 F41.9 I will refill her clonazepam and she can continue to use it as needed. Currently using a few times a week. Hypothyroidism 24962835 E03.9 stable TSH - 2.2; overdue to repeat this nowcontinu e thyroxine 88 mcg Chronic ki dney disease stage 3B 697669416 N18.32 Chronic, not changing.F olemilying with nephrology , Dr. Jiménez ck labs prior to next office visit Intracrani al meningioma 793503460 D32.0 chronic, stable.MRI last done 6-7 years ago, but she declines reimaging now - I have too much on my plate right now.. 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 Itzel le beta-block er, statin, and aspirin Benign ess ential hypertension 8926979 I10 Borderline c ontrolled. Considered increasing medication but decided not to based on previous good control, And home readings that are nearly at goal - 130s/60s 7 0sRecommen ded to resume AHBPM and f/u in 2 months, And follow-up with home readings for reassessme nt.Recomme nd that she bring her blood pressure cuff with her to the next office visit so we can check accuracy on that. [id number] WILBUR TEAGUE MD [address] [place] [address] 07/14/2024 11:19:29 07/14/2024 12:18:14 Anxiety 17834576 F41.9 I will refill her clonazepam and she can continue to use it as needed. Currently using a few times a week. Caregiver role strain 12 3193291 Z73.3 somewhat improved, but Efrain continues to require high level of care - even on hospice.Manoj morin restarted zoloft, and recommend continuing Anemia 840451005 D64.9 likely secondary to CKD, and her anemia is now below 10, at Hgb 9.7.recomm end to establish with hematology to see if Procrit is recommende d. Chronic ki dney disease stage 3B 070710032 N18.32 Chronic, not changing.F ollowing with nephrology , Dr. Jiménez ck labs prior to next office visit Benign ess ential hypertension 5312083 I10 Borderline c ontrolled. Considered increasing medication but decided not to based on previous good control, And home readings that are at goal - 120s-130s/ 60s 7 0sRecommen ded to resume AHBPM and f/u in 2 months, And follow-up with home readings for reassessme nt.Recomme nd that she bring her blood pressure cuff with her to the next office visit so we can check accuracy on that. Pure hypercholesterolemia 413849797 E78.00 Hyperlipid emia controlled with lipids at goal on present therapy.la bs are due to be repeated in 10/2023, and were ordered by nephrology Hypothyroidism 22384792 E03.9 stable TSH - 2.2 -> 0.777; therapeuti c.continue thyroxine 88 mcg Administra tion of influenza vaccine 04580036 Z23 [id number] WILBUR TEAGUE MD [address] [place] [address] 10/13/2024 12:57:24 10/13/2024 13:39:50 Adult health examination 973507090 Z00.00 Review of systems reviewed and discussed. Depression screening reviewed and discussed with recommenda tions as below.Foll ow risk and home safety reviewed with patient.Co gnition evaluated by use of mini cog, with results as indicated above.Alco hol and depression screening and counseling as follows:Ti me Spent:Alco hol screening 1 minute, and counseling 0 minutesDep ression Screening 1 minute, and counseling 4 minutesOth er recommenda tions found below. 10 year followup plan reviewed and updated. Please see patient instructio ns for more details.Shiela aaron instructio ns were printed for patient, and personaliz ed handout given at time of checkout. Screening for disorder 155749162 Z13.89 Depression screening 171 115305 Z13.31 Acute bronchitis 1369590 2 J20.9 New problemNas al culture obtained today, but given presentati on, And holiday tomorrow, I am going to cover her for influenza. Her creatinine clearance is 24 calculated , so we will use low-dose oseltamavi r. Will also cover for bacterial microbes with azithromyc inContact patient after results are available and inform of any change to treatment plan pending outcome. Chronic ki dney disease stage 3B 643947399 N18.32 Chronic, not changing.Gurinder gutierrez with nephrology , Dr. 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 Anxiety 37915531 F41.9 I will refill her clonazepam and she can continue to use it as needed. Currently using a few times a week. Hypothyroidism 93132288 E03.9 stable TSH - 2.2 -> 0.777; therapeuti c.continue thyroxine 88 mcg Benign ess ential hypertension 9318624 I10 Borderline c ontrolled. Considered increasing medication but decided not to based on previous good control, And home readings that are at goal - 120s-130s/ 60s 7 0sRecommen ded to resume AHBPM and f/u in 2 months, And follow-up with home readings for reassessme nt.Recomme nd that she bring her blood pressure cuff with her to the next office visit so we can check accuracy on that. Gastroesop hageal reflux disease 237391629 K21.9 Stable on omeprazole which we will continue unchanged since she has failed efforts to taper in the past. Hyperlipidemia 77596393 E78.5 Chronic, suboptimal with total cholestero l 210. Much improved though from previous cholestero l 420 at the time of her [place] in 1998Contin ue 80 mg atorvastat in QUIRINO ANTHONY MD [address] [facility] [address] [place] [address] 12/14/2024 10:42:21 12/15/2024 06:54:21 Iron deficiency anemia 90664018 D50.9 83578112 This is an 89-year-ol d female with chronic iron deficiency anemia that she has had for many years. She has had several workups in the past that include bone marrow biopsies etc. She also gets iron infusions regularly. I called Dr. Soni on the phone to ensure that I was not missing any details of her history. He explains that he sent her because of the iron deficiency plus the fecal occult blood test that was positive. The patient is not having any other symptoms. We had a long discussion about her options today. She is 89 years old and claims she has had a happy life. She explains that even if a cancer is found on colonoscop y she would not want to have surgery for it. She does not want any invasive testing such as scopes. I understand and respect her wishes. She may always return to see me if the situation changes or if she has any further questions. [id number] WILBUR TEAGUE MD [address] [place] [address] 01/12/2025 11:19:20 01/12/2025 11:58:15 Essential hypertension 86191768 I10 79815 Uncontroll ed at home and in office*zulma l increase amlodipine to 2 tabs daily, and increase triamteren e-hctz to daily (currently taking 5 days a week)Recom mend AH BPMBP goals reviewed and discussed. Lifestyle modificati ons discussed including tobacco abstinence , limiting alcohol intake, low sodium diet, exercise, and weight loss as able. Grief finding 245165112 F43.21 73013 has discontinu ed sertraline . She appropriat taylor tapered medication as instructio ns.Seems to be doing well, adjusted and coping now. Advised to contact clinic for any worsened or uncontroll ed symptoms. [id number] WILBUR TEAGUE MD [address] [place] [address] 05/10/2025 10:31:53 05/10/2025 11:21:42 Lightheadedness 855546637 R42 495079 Recommend repeating carotid ultrasound and she agrees. Its been several years, But she says there was no significan t obstructio n when last checked. Chronic anemia 448117209 D64.9 283851 likely secondary to CKD, and her anemia is now below 10, at Hgb 9.7.Petronaeve r, her stool was hemoccult positive. She feels she is too old for a GI w/u. she did see hematology and they recommende d IV iron, which helped. Hyperlipidemia 79651119 E78.5 Chronic, suboptimal with total cholestero l 210. Much improved though from previous cholestero l 420 at the time of her [place] in 1998Contin ue 80 mg atorvastat in Anxiety 54792783 F41.9 I will refill her clonazepam and she can continue to use it as needed. Currently using a few times a week. Benign ess ential hypertension 5438865 I10 Borderline c ontrolled. Considered increasing medication but decided not to based on previous good control, And home readings that are at goal - 120s-130s/ 60s 7 0sRecommen ded to resume AHBPM and f/u in 2 months, And follow-up with home readings for reassessme nt.Recomme nd that she bring her blood pressure cuff with her to the next office visit so we can check accuracy on that. Gastroesop hageal reflux disease 879215146 K21.9 Stable on omeprazole which we will continue unchanged since she has failed efforts to taper in the past. Essential hypertension 14807926 I10 Uncontroll ed at home and in office*zulma l increase amlodipine to 2 tabs daily, and increase triamteren e-hctz to daily (currently taking 5 days a week)Recom mend AH BPMBP goals reviewed and discussed. Lifestyle modificati ons discussed including tobacco abstinence , limiting alcohol intake, low sodium diet, exercise, and weight loss as able. Near syncope 865975788 R 55 619612 I would not recommend more aggressive blood pressure control in the context of her complaint of episodes of lightheade dness that sound presyncopa l in nature. I do not think this is from overzealou s blood pressure correction , so a possible culprit would be bradycardi c episodes. She is on a beta-block er. However she also sees an EP cardiologi st. I recommend we check carotid arteries to rule out stenosis, and an echocardio gram to rule out valvular heart disease and other structural abnormalit ies. I encouraged her to discuss her progressiv e symptoms with her cardiologi st, but if unable to get in contact, we may consider switching her metoprolol to tartrate twice daily to metoprolol succinate 25 mg once daily. She says she will call Dr. Gurrola. As recommende d, and contact clinic if symptoms worsen.Als o advised that if she loses consciousn ess she should go to the emergency room or contact EMS depending on the situation. [id number] WILBUR TEAGUE MD [address] [place] [address] 07/12/2025 12:36:26 07/12/2025 13:33:57 Benign essential hypertension 8773444 I10 controlled . Improved. increased amlodipine to [...] can check accuracy on that. Chronic anemia 006633533 D64.9 980850 likely secondary to CKD, and her anemia is now below 10, at Hgb 9.7.Petronaeve r, her stool was hemoccult positive. She feels she is too old for a GI w/u. she did see hematology and they recommende d IV iron, which helped. Postural dizziness 15112 7008 R42 R55 25163012 Recommend repeating carotid ultrasound and she agrees. Its been several years, But she says there was no significan t obstructio n when last checked. Requires i nfluenza virus vaccination 909442155 Z23 6821048 Health Concerns Section Related Observation LastModified by Organization Detai ls LastModified Time None Recorded Concern Status LastModified by Organization Details LastModified Time None Recorded Advance Directives Directive Y: Payers Insurance Date Sequence Insurance Name Policy Number Policy Dorsey Covered Member ID Dorsey Member ID Guarantor Name 09/07/2025 1 [place] Marlen Cason [id number] Marlen Cason 05/10/2025 [place] Marlen Cason [id number] Marlen Rantoul 05/10/2025 2 [place] 106 Marlen Cason [id number] Marlen Cason 09/07/2025 2 [place] 104 Efrain Cason Jr [id number] Marlen Rantoul Notes Date Note Type Note Provider Name and Address Organization Details Recorded Time 10/13/2024 text/html Patient presents for the Medicare annual wellness visit. Past medical, social, and family history reviewed, along with surgical history and medication review. Reviewed current providers, and performed depression and alcohol use screening. Performed fall screening. Cognition evaluated by use of Mini-Mental status exam, with results as indicated above. Home safety reviewed with patient. See physical exam findings and assessment for her orders. See patient instructions for a 10 year followup plan. See scanned documents for patient's self-assessment questionnaires. In addition to the above, the patient is here to discuss the recent fasting labs, which are shown below. They are reviewed in detail with the patient, and All normal and abnormal results are explained. All questions answered to the patient's satisfaction today. She also reports that her Efrain 13 days ago. The is in just a few days. She has continued taking the sertraline that I put her on for caregiver role strain and she thinks it is helping her cope with her grief. She would like to continue it. She has used the clonazepam as well a few times since his passing. She says she still has plenty of that left. She also is complaining of a cough. Symptoms have been present for about a week. Cough is productive of thick yellow sputum. She has heard occasional wheezing but she denies chest pain, shortness of breath, fever, chills, or bodyaches. She also is requesting a refill of all of her regular daily medications. WILBUR TEAGUE MD [address] [place], [address], [address] 10/13/2024 13:48:54 12/14/2024 text/html ROS as noted in the HPI cc chronic iron def anemia HPI:89-year-old with chronic iron deficiency anemia.Hb 9.2 She sees an oncologist locally (Dr Soni) but has also seen an oncologist in [place] for ongoing care. She has poor toleration of IV iron infusions. Her last colonoscopy was by me in 2013 for history of polyps. The colonoscopy was completely normal. recently she had a positive fecl occult blood testNo abdominal pain or GI symptoms QUIRINO ANTHONY MD [address] [place] [address], [phone], [address] 12/15/2024 10:27:31 01/12/2025 text/html 89-year-old female grieving the loss of her here to follow-up on grief. She tapered off of the sertraline and feels she is doing pretty well now.Unfortunately, blood pressure is elevated today. She admits it seems to have been higher at home recently as well. Denies chest pain, headache, visual change, palpitation, lightheadedness, or shortness of breath. She does have some occasional mild swelling around the ankles. This comes and goes. WILBUR TEAGUE MD [address] [place] [address], [phone], [address] 01/13/2025 06:25:15 05/10/2025 text/html Patient presents to follow-up on hypertension. Her blood pressure is a little elevated today, she notes has been 130s 1 50s at home. Unfortunately she has been having some episodes of lightheadedness. She did tell her professor of fine art, Dr. Gurrola, about this. He discussed with her about possibly doing a Holter monitor in the future. She thinks the episodes are getting a little more frequent. Her most recent episode occurred while she was standing in adventist, and she had to sit down and put my head between my legs. She did not lose consciousness, and her symptoms resolved in 1 to 2 minutes. She denies accompanying chest pain but admits that she may feel short of breath at times with episodes. WILBUR TEAGUE MD [address] [place] [address], [id number], [address] 05/11/2025 06:25:26 07/12/2025 text/html The patient is here to discuss the recent fasting labs, which are shown above. They are reviewed in detail with the patient, and All normal and abnormal results are explained. All questions answered to the patient's satisfaction today. WILBUR TEAGUE MD [address] [place] [address], [id number], [place] [id number] [place] 07/13/2025 06:37:07 OBGyn Episode No OBEpisode recorded.
[2025-10-08 12:29] VITALS: BP 120/60; PULSE 69; TEMP 36.4; O2SAT 98; BMI 21.2
--- NOTE | 2025-10-08 12:29 | MHC.OFFWIV ---
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 Patient Tobacco Use Status: Former Tobacco user Allergies meperidine (From Demerol) Allergy (Intermediate, Verified 10/08/25 12:33) respiratory issues morphine Allergy (Intermediate, Verified 10/08/25 12:33) respiratory issues HPI HPI Comments History of Present Illness Details History of Present Illness The patient is an 89 year old female with a past medical history of hypothyroidism, GERD, hypertension, CKD presenting with rhinorrhea, congestion, cough. - The patient reports being sick for about 12 days with symptoms of a cold and cough. - The cough is productive with thick, yellow-greenish nasal discharge and sputum and keeps her awake at night. - She initially had a sore throat however that has improved - Associated symptoms include sinus issues and epistaxis which she attributes to dry air. - She denies fevers or significant shortness of breath. - The patient has been taking Coricidin HBP with minimal relief. Review of Systems - Constitutional: Denies fever. - Cardiac: Denies chest pain - Respiratory: Reports a productive cough with thick, yellow-greenish sputum. Denies significant dyspnea. - ENT: Reports rhinorrhea, congestion, sinus issues,intermittent epistaxis. Reports a history of sore throat at the onset of illness. - Gastrointestinal: Denies nasuea or vomiting. Reports occasional diarrhea without hematochezia. Physical Exam General Appearance: Normal appearance, well developed. No acute distress HEENT: Normocephalic, atraumatic. External ears and ear canals show moderate ear wax. Dried blood noted in right nasal cavity. Congestion present. Oropharynx clear without erythema or exudate. Cardiac: Regular rate and rhythm. No murmurs. Pulmonary: No respiratory distress. Speaking in full sentences. Clear to auscultation bilaterally. Musculoskeletal: Moving all extremities spontaneously and against gravity Mental Status: Alert and Oriented x 3 Psychiatric: Normal mood. Normal affect. [facility] Social History (System 11/28/23 @ 13:57 by Dominique Canales) Patient Tobacco Use Status: Former Tobacco user Physical Exam Vital Signs: Last Vital Signs Temp 97.6 F 10/08/25 12:29 Pulse 69 10/08/25 12:29 BP 120/60 10/08/25 12:29 Pulse Ox 98 10/08/25 12:29 Oxygen Delivery Method Room Air 10/08/25 12:29 BMI result Body Mass Index 21.2 Assessment & Plan Assessment & Plan (1) Acute rhinosinusitis: Code(s): J01.90 - Acute sinusitis, unspecified (2) Acute bronchitis: Code(s): J20.9 - Acute bronchitis, unspecified Qualifiers: Bronchitis organism: unspecified organism Qualified Code(s): J20.9 - Acute bronchitis, unspecified Plan - The patient presents with a 12-day course of productive cough and sinus symptoms - Upon physical exam, lungs are clear to auscultation bilaterally. She denies any fevers, shortness of breath and is saturating well. Low concern for pneumonia. - Will start doxycycline for rhinosinusitis - Patient advised to avoid direct sunlight while taking medication and to sit up for 30 minutes post administration of medication. Advised to avoid taking antacids, multivitamis, and supplements containing iron, calcium, Mg, or zinc within 2 hour of taking Doxycycline. - Advised to rest and increase fluids. She was advised to continue using Coricidin for symptomatic relief. - Monitor for any worsening symptoms, new fever, increased shortness of breath, or chest pain. Recommended to seek medical attention if these symptoms occur. Patient was informed and verbally consented to the use of an ambient scribe for clinic note documentation during the visit. Medications: New doxycycline hyclate 100 mg PO BID 10 caps 0RF 5 days Coding Level of Care Code New Pt Level 3 (28386) Diagnoses Acute rhinosinusitis J01.90 Acute bronchitis, unspecified organism J20.9 Bronchitis organism: unspecified organism
== END 2025-10-08 12:55 | disposition home or self-care (01) ==
PROVIDERS: Visit Provider Family Medicine
DX: J01.90 Acute sinusitis, unspecified (principal); J20.9 Acute bronchitis, unspecified

== ENCOUNTER → 2025-10-08 11:15 | Outpatient (BNVA) | payer MEDICARE, BC, SELFPAY | PROVIDERS: Visit Provider Family Medicine | DX: J01.90 Acute sinusitis, unspecified (principal); J20.9 Acute bronchitis, unspecified; Z87.891 Personal history of nicotine dependence | CPT/HCPCS: 99202 ==